=== PATIENT | female | born 1955 | race Hispanic/Latino ===

== ENCOUNTER 2018-01-09 15:14 | Emergency (ER) | payer OTHER, SELFPAY ==
[~2018-01-09 15:14] MED LIST: AMOX-426 PO; LEVO500T2 PO; LISI10TA7 PO; METF850T2 PO
== END 2018-01-09 15:55 | disposition home or self-care (01) ==
LOC: EDH 15:14
DX: H66.011 Acute suppurative otitis media with spontaneous rupture of ear drum, right ear (principal)

== ENCOUNTER 2025-01-13 01:49 | Inpatient (IN) | payer MEDICAID ==
[~2025-01-13] VITALS: Ht 157.5 cm; Wt 39.2 kg
[2025-01-13] VITALS (34 sets, daily range): BP systolic 120–149; BP diastolic 48–64; PULSE 69–92; RESP 12–28; TEMP 97.5–98.8; O2SAT 95–100
[~2025-01-13 01:49] MED LIST changes: +LISI10TA24 PO; -LISI10TA7 PO; +METF-445 PO; -METF850T2 PO
--- NOTE | 2025-01-13 02:13 | NUR ---
PHONE NUMBER FOR FAMILY [phone]
[2025-01-13 02:23] LABS: BASOPHILS # (AUTO) 0.08 K/uL (0.00-0.20); BASOPHILS % (AUTO) 0.5 % (0.0-5.0); EOSINOPHILS # (AUTO) 0.16 K/uL (0.00-0.70); EOSINOPHILS % (AUTO) 0.9 % (0.0-8.0); HEMATOCRIT 31.3 % (36-48); IMMATURE GRANULOCYTE ABSOLUTE 0.09 K/uL (0-1); LYMPHOCYTES # (AUTO) 1.7 K/uL (1.0-4.8); LYMPHOCYTES % (AUTO) 9.9 % (21.0-51.0); MEAN CORPUSCULAR HEMOGLOBIN 30.6 pg (27.0-33.0); MEAN CORPUSCULAR HGB CONC 29.4 g/dL (32.0-36.0); MONOCYTES # (AUTO) 0.5 K/uL (0.1-1.0); NEUTROPHILS # (AUTO) 14.9 K/uL (1.8-7.7); NEUTROPHILS % (AUTO) 85.2 % (40.0-77.0); PLATELET COUNT (AUTO) 335 K/uL (130-400); RED BLOOD CELL COUNT(AUTO) 3.01 MIL/uL (4.00-5.50); RED CELL DISTRIBUTION WIDTH 17.1 % (11.0-15.5); WHITE BLOOD COUNT (AUTO) 17.5 K/uL (4.8-10.8)
--- NOTE | 2025-01-13 02:27 | NUR ---
PATIENT DID NOT BRING HOME MEDICATIONS
[2025-01-13 02:38] LABS: CREATININE 7.6 mg/dL (0.5-1.0); MAGNESIUM 2.4 mg/dL (1.80-2.40); POTASSIUM 5.5 mmol/L (3.5-5.1)
[2025-01-13 02:40] LABS: ABG BASE EXCESS -7.1 mmol/L (-2.0-3.0); ABG HCO3 22.3 mmol/L (21.0-28.0); ABG OXYGEN SATURATION 92.4 % (94.0-98.0); CARBON MONOXIDE 0.5 % (0.5-1.5); HHb 7.5; PO2, ARTERIAL BG 85.5 mmHg (83.0-108.0); VENT MODE, BG BIPAP,12,6 (ROOM AIR)
[2025-01-13 02:49] LABS: B-TYPE NATRIURETIC PEPTIDE 3120 pg/mL (0-100)
[2025-01-13] MEDS: ceFEPime HCL 1 GM VIAL IVPB SCH (02:57)
[2025-01-13] MEDS ORDERED: VANCOMYCIN PROTOCOL PER PHARMACY IV SCH (03:00)
--- NOTE | 2025-01-13 03:04 | ERN ---
General Chief Complaint: Shortness of Breath Stated Complaint: SOB, NEEDS H/D Time Seen by MD: 01:50 Time Seen by Midlevel: 01:50 Source: patient History of Present Illness Initial Comments The patient is a 69-year-old female extremely poor historian being brought in by EMS for evaluation of shortness of breath. No history was able to be obtained via the patient. All history was obtained by EMS. The patient was picked up at home after EMS was called on scene. O2 saturation on scene was 89%. The patient was given oxygen via nasal cannula with little to no relief. On arrival the patient appears to be in [id number] respiratory distress. She was unable to speak in complete sentences. Unable to obtain any history from the p atient. She does admit to being a dialysis patient but is unable to tell us when her last dialysis treatment was or who her parquetry layer this. Allergies: Coded Allergies: No Known Allergies (Verified Allergy, Unknown, 05/22/15) Home Meds Active Scripts Amoxicillin/Potassium Clav (Augmentin 500-125 Tablet) 1 Each Tablet, 1 EACH PO B ID, #28 TAB Prov:ANDREE GRACIA MD 05/26/15 Levofloxacin (Levaquin) 500 Mg Tablet, 500 MG PO DAILY, #14 TAB Prov:ANDREE GRACIA MD 05/26/15 Lisinopril (Lisinopril) 10 Mg Tablet, 10 MG PO DAILY, #30 TAB Prov:ANDREE GRACIA MD 05/26/15 Metformin HCl (Metformin HCl) 850 Mg Tablet, 850 MG PO BID, #60 TAB Prov:ANDREE GRACIA MD 05/26/15 Past Medical History Past Medical History: Diabetes-Type II, Hypertension, Renal Failure Past Surgical History: Unknown ROS Dictation CONSTITUTIONAL: Negative except for HPI HEAD/FACE: Negative except for HPI EENT: Negative except for HPI RESPIRATORY: Negative except for HPI GASTROINTESTINAL/ABDOMINAL: Negative except for HPI GENITOURINARY: Negative except for HPI MUSCULOSKELETAL: Negative except for HPI INTEGUMENTARY: Negative except for HPI NEUROLOGICAL/PSYCH: Negative except for HPI HEMATOLOGIC/LYMPHATIC: Negative except for HPI All Systems Negative, Except as noted above. 13 point review of systems assessed and all negative except for above. Physical Exam Physical Exam Dictation Vital Signs reviewed General Appearance: appears sleepy, moderate respiratory distress Head and Face: non-traumatic. Eyes: PERRL, pink conjunctivas, eyelid no trauma, anterior chamber with arcus senilis. Ears: Pinnas intact and no signs of trauma or erythema ear canals clear and no discharge TM no erythema Nose: No discharge, no bleeding. Oropharynx: Mouth normal, tongue pink, pharynx clear,no erythema, tonsils no exudates, no abscesses noted, mucous membrane moist Neck: Supple, non-tender, no thyromegaly, no masses, no JVD, no bruits Breast:Deferred Chest:No tenderness, no crepitus, no paradoxical movement, no retractions Lungs: Rhonchi to bilateral lung chauhan, tachypneic Heart: Regular rate, regular rhythm, no murmur, no gallops Vascular: Trace pitting edema to bilateral lower extremities , right PermCath Abdomen: Soft, positive bowel sounds, nondistended, no guarding, nontender, no rebound, no masses no hepatomegaly, no splenomegaly, no Hare's sign, no hernias. Rectal: Deferred Genital: Deferred Neurological: Normal speech, motor function intact, sensory function intact Musculoskeletal: Neck nontender, full range of motion, back nontender, full range of motion, Extremities: nontender, full range of motion Skin: Color pink, dry, no turgor, no rash, no lacerations, no abrasions, no contusions. Lymphatic: Deferred Results Laboratory and Microbiology Lab and Micro Result Laboratory Tests Test 01/13/25 02:12 01/13/25 02:38 White Blood Count 17.5 K/uL (4.8-10.8) H Red Blood Count 3.01 MIL/uL (4.00-5.50) L Hemoglobin 9.2 g/dL (12.0-16.0) L Hematocrit 31.3 % (36-48) L Mean Corpuscular Volume 104.0 fL (79-99) H Mean Corpuscular Hemoglobin 30.6 pg (27.0-33.0) Mean Corpuscular Hemoglobin Concent 29.4 g/dL (32.0-36.0) L Red Cell Distribution Width 17.1 % (11.0-15.5) H Platelet Count 335 K/uL (130-400) Mean Platelet Volume 9.6 fL (7.5-10.5) Immature Granulocyte % (Auto) 0.5 % (0-1) Neutrophils (%) (Auto) 85.2 % (40.0-77.0) H Lymphocytes (%) (Auto) 9.9 % (21.0-51.0) L Monocytes (%) (Auto) 3.0 % (3.0-13.0) Eosinophils (%) (Auto) 0.9 % (0.0-8.0) Basophils (%) (Auto) 0.5 % (0.0-5.0) Neutrophils # (Auto) 14.9 K/uL (1.8-7.7) H Lymphocytes # (Auto) 1.7 K/uL (1.0-4.8) Monocytes # (Auto) 0.5 K/uL (0.1-1.0) Eosinophils # (Auto) 0.16 K/uL (0.00-0.70) Basophils # (Auto) 0.08 K/uL (0.00-0.20) Absolute Immature Granulocyte (auto 0.09 K/uL (0-1) Nucleated Red Blood Cells 0.0 % (0.0-0.19) White Cell Morphology Comment See comments Red Blood Cell Morphology See comments Sodium Level 135 mmol/L (136-145) L Potassium Level 5.5 mmol/L (3.5-5.1) H Chloride Level 96 mmol/L (101-111) L Carbon Dioxide Level 28 mmol/L (21-32) Blood Urea Nitrogen 83 mg/dL (7-18) *H Creatinine 7.6 mg/dL (0.5-1.0) H Glomerular Filtration Rate Calc 5 mL/min (>90) Random Glucose 168 mg/dL (70-105) H Total Calcium 8.3 mg/dL (8.5-10.1) L Magnesium Level 2.40 mg/dL (1.80-2.40) Total Creatine Kinase 45 U/L (21-232) # Troponin I High Sensitivity 23 ng/L (4-50) B-Type Natriuretic Peptide 3120 pg/mL (0-100) H Blood Gas Specimen Type Arterial Arterial Blood pH 7.132 (7.350-7.450) Arterial Blood Partial Pressure CO2 68 mmHg (32-45) *H Arterial Blood Partial Pressure O2 85.5 mmHg (83.0-108.0) Arterial Blood HCO3 22.3 mmol/L (21.0-28.0) Arterial Blood Oxygen Saturation 92.4 % (94.0-98.0) L Arterial Blood Base Excess -7.1 mmol/L (-2.0-3.0) L Hemoglobin (Blood Gas) 9.3 g/dL (12.0-16.0) L Sodium (Blood Gas) 134 MMOL/L (136-145) L Bedside Potassium (Blood Gas) 5.4 MMOL/L (3.4-4.5) H Bedside Chloride (Blood Gas) 98 MMOL/L (98-107) Bedside Glucose (Blood Gas) 167 MG/DL (65-95) H Bedside Ionized Calcium (Blood Gas) 1.07 MMOL/L (1.15-1.33) L Bedside Lactic Acid (Blood Gas) 1.29 MMOL/L (0.36-0.75) H Blood Gas Temperature 37.0 CELSIUS (35.5-37.0) Blood Gas Respiration Rate 18.0 min. Blood Gas Vent Mode BIPAP,12,6 (ROOM AIR) FiO2 50.0 % Blood Gas Specimen Comment LB,RN,MANY Labs Reviewed?: Yes MDM MDM: Differential diagnosis: Fluid overload, respiratory distress, pulmonary edema, pneumonia Rationale: Tests considered and ordered secondary to shared decision making incl ude: Previous outside records reviewed: Old ER visits. Risk of complication and/or morbidity or mortality of patient management: None Medications-Per medication reconciliation Need for hospitalization: Patient does meet criteria for hospitalization. Need for emergency major/minor surgery: No There are no social concerns with this patient. Prescription drug management Prescriptions will include symptomatic care Patient's prior external medical records from other ER visits were reviewed by me as indicated. Prior testing and results from previous visits were reviewed. Prior tests were taken into account with medical decision making and resource utilization, independent historian/historians were used to obtain complete medical history. I independently interpreted the test that were performed, results were reviewed by me and considered findings on radiology if ordered. Medical management and examination interpretation discussions were had by me with other qualified healthcare professionals as indicated for the patient's care. ED Course Orders Procedure Category Date Status Time 12 Lead Ekg Tracing- EKG 01/13/25 Logged Technical 01:58 B-Type Natriuretic LAB 01/13/25 Complete Peptide 01:58 Basic Metabolic Panel LAB 01/13/25 Complete 01:58 Cbc With Differential LAB 01/13/25 Complete 01:58 Urinalysis Profile LAB 01/13/25 Logged 01:58 Troponin I High LAB 01/13/25 Complete Sensitivity 01:58 Chest 1vw RAD 01/13/25 Taken 01:58 Magnesium LAB 01/13/25 Complete 01:58 Creatine Kinase, Total LAB 01/13/25 Complete 01:58 Arterial Blood Gas + RT 01/13/25 Transmitted 01:58 Vancomycin Protocol PHA 01/13/25 Logged (Vancomycin Protocol 03:00 Cefepime Hcl 1 Gm PHA 01/13/25 In Process Vial (Maxipime 1 Gm Vi 03:00 Bipap Settings RT 01/13/25 Transmitted 02:31 Arterial Blood Gas LAB 01/13/25 Complete Arterial + 02:38 Current Medications Medications (Trade) Dose Ordered Sig/Carlene Route PRN Reason Start Time Stop Time Status Last Admin Dose Admin Cefepime HCl (MAXipime 1 GM vial) 1 gm Q24H IVPB 01/13/25 03:00 01/23/25 02:59 01/13/25 02:57 Vancomycin HCl (Vancomycin Protocol) 1 each AD IV 01/13/25 03:00 01/27/25 02:59 UNV Vital Signs Date Time Temp Pulse Resp B/P (MAP) Pulse Ox O2 Delivery O2 Flow Rate FiO2 01/13/25 02:52 72 28 N/Cannula Low lpm 3.0 32 01/13/25 02:49 73 27 50 01/13/25 02:26 74 18 50 01/13/25 02:08 84 32 125/49 84 Nasal Cannula* 3 32 01/13/25 02:05 96.6 80 26 148/61 85 Nasal Cannula 3.0 3:00 a.m. case discussed with parquetry layer Dr. Ward who agrees to consult. Recommends admission and will dialyze in the morning. Dr. Ward is aware of this patient. This patient gets dialysis as needed but normally goes to [facility]. DX & DISP Disposition: Inpatient Decision to Admit Date: Jan 13, 2025 Decision to Admit Time: 03:06 Departure Impression: Primary Impression: Pulmonary edema Additional Impressions: End-stage renal disease on hemodialysis, Respiratory distress, Pneumonia, Leukocytosis, Hyperkalemia Condition: Stable Referrals: SELF,REFERRAL (PCP) I have reviewed the case, and I agree with, Diagnosis and Plan I performed the substantive portion of the visit. I have reviewed and personally made and approve the management plan that is documented in the note by myself or the CONNOR. I acknowledge for responsibility for the patient's management plan. OMERO HUMPHREYS Jan 13, 2025 03:04
[2025-01-13] MEDS: VANCOMYCIN 1G/250ML KIT 250 ML IV ONE (03:18)
[2025-01-13] MEDS: DEXTROSE 50%-WATER 50 ML DISP.SYRIN IV ONE (03:18)
[2025-01-13] MEDS: INSULIN humuLIN R 100 UNIT/ML 3ML IV ONE (03:21)
--- NOTE | 2025-01-13 03:22 | HP ---
History of Present Illness Reason for Visit: sob History of Present Illness Ms. Whittington is a 69-year-old female that was seen and examined today on 01/13/2025. Patient is unable to provide any past medical history at this time due to shortness and breath. Patient is on a BiPAP. There was no family member at bedside. The following was obtained from a combination of emergency room physician report and previous records available to me from a remote admission in 2015 According to emergency room physician: The patient is a 69-year-old female extremely poor historian being brought in by EMS for evaluation of shortness of breath. No history was able to be obtained via the patient. All history was obtained by EMS. The patient was picked up at home after EMS was called on scene. O2 saturation on scene was 89%. The patient was given oxygen via nasal cannula with little to no relief. On arrival the patient appears to be in [id number] respiratory distress. She was unable to speak in complete sentences. Unable to obtain any history from the patient. She does admit to being a dialysis patient but is unable to tell us when her last dialysis treatment was or who her bridge opener this. Today in the emergency department WBCs 17.5, left shift neutrophils 85.2%, hemoglobin 9.2, hematocrit 31.3, potassium 5.5, BUN 83, creatinine 7.6, BNP 3120, calcium 7.6 Past Medical History Patient History: Family history: Hypertension SON No Family History of: Cancer Chronic obstructive lung disease Family history: Alzheimer's disease Family history: Asthma Family history: Cardiovascular disease Family history: Diabetes mellitus Parkinson's disease Stroke Sudden ADDITIONAL PAST MEDICAL HISTORY: [ESRD on HD, Diabetes mellitius type2] SOCIAL HISTORY: [Unable to obtain] SURGICAL HISTORY: [Left great toe amputation] Review of Systems General: No Fever, No Chills, No Night Sweats, No Fatigue, No Malaise, No Appetite, No Other HEENT: No Head Aches, No Visual Changes, No Eye Pain, No Ear Pain, No Dysphasia, No Sinus Congestion, No Post Nasal Drip, No Sore Throat, No Other Pulmonary: Dyspnea; No Cough, No Pleuritic Chest Pain, No Other Cardiovascular: No: Chest Pain, Palpitations, Orthopnea, Paroxysmal Noc. Dyspnea, Edema, Lt Headedness, Other Gastrointestinal: No: Nausea, Vomiting, Abdominal Pain, Diarrhea, Constipation, Melena, Hematochezia, Other Genitourinary: No Dysuria, No Frequency, No Incontinence, No Hematuria, No Retention, No Other Musculoskeletal: No: other, neck pain, shoulder pain, arm pain, back pain, hand pain, leg pain, foot pain Skin: No Urticaria, No Rash, No Other Neurological: Weakness; No: Numbness, Incoordination, Change in speech, Confusion, Seizures, Other Allergies: Coded Allergies: No Known Allergies (Verified Allergy, Unknown, 05/22/15) Scheduled Amoxicillin/Potassium Clav (Augmentin 500-125 Tablet), 1 EACH PO BID Levofloxacin (Levaquin), 500 MG PO DAILY Lisinopril (Lisinopril), 10 MG PO DAILY Metformin HCl (Metformin HCl), 850 MG PO BID Exam Vital Signs Vital Signs Date Time Temp Pulse Resp B/P (MAP) Pulse Ox O2 Delivery O2 Flow Rate FiO2 01/13/25 02:52 72 28 N/Cannula Low lpm 3.0 32 01/13/25 02:08 125/49 84 01/13/25 02:05 96.6 General Appearance: Alert (x1), moderate distress HEENT: Atraumatic, EOMI, Mucous membr. moist/pink Respiratory: Other (Bilateral rales present) Cardiovascular: Regular rate, Regular rhythm, Normal S1, Normal S2 Abdominal: Normal bowel sounds, No tenderness Extremities: No edema, Other (Right femoral dialysis access) Skin: Other (Heel protectors to bilateral feet) Neuro: Other (Unable to assess) Psych/Mental Status: Other (Unable to assess) Assessment/Plan ASSESSMENT: [ Acute hypoxemic respiratory failure, POA, requiring noninvasive positive airway pressure, POA Pulmonary edema, POA ESRD on HD, POA Hyperkalemia, POA Hypocalcemia, POA Leukocytosis, POA Macrocytic normochromic anemia, POA Uncontrolled Diabetes mellitius type2, POA Functional quadriplegia Suspected pneumonia PLAN: [ Admit patient to ICU floor as inpatient status. Place patient on telemetry monitoring. Consult pulmonology Service, appreciate recommendations DuoNebs every 6 hours Solu-Medrol 125 mg IV times 1 Solu-Medrol 40 mg IV every 8 hours. BiPAP per emergency room settings, 08/21, 50%, rate 24, adjustments per pulmonology team Patient is being followed by Nephrology Service, Dr. Ward who was consulted from the emergency department. Monitor intake and output every shift. Weight patient daily. 1500 mL daily fluid restriction. Plan is for hemodialysis in the morning. Manage electrolytes per Nephrology recommendations Check blood culture, follow up with the results Check lactic acid, follow up with the results Check procalcitonin, follow up with the results Check respiratory culture, follow up with the results Check iron panel, follow up with the results Check serum ferritin, follow up with the results Check LDH, reticulocyte count, peripheral smear, follow up with the results Monitor labs Transfuse packed red blood cells for hemoglobin less than 7 mg/dL Check folic acid and vitamin B12, follow up with the results Consult Physical therapy for evaluation and treatment Consult speech therapy for bedside swallow eval Consider advancing diet if patient is no longer short of breath and she passes bedside swallow eval Dietitian consult for nutritional support recommendations Turn and reposition patient every 2 hours Check glucometer a.c. and HS Check hemoglobin A1c in a.m. Humulin R as sliding scale 1/2 dose GI prophylaxis, Protonix DVT prophylaxis, heparin Critical Care Time: I spent ___ 51 __ minutes of critical care time with the patient. I reviewed lab work, change the patient's medication, and coordinated protocol in the event of tachycardia or desaturation. The patient status remains unchanged. ADVANCED CARE PLANNING 1. Which of the following were discussed? Hospice Care - Yes Therapeutic options - Yes Advance Directives - Yes Other discussions - 2. Discussed with who? patient 3. Voluntary nature of this service was explained to the patient? Yes 4. Amount of time spent - _16 minutes 5. Reviewed by Physician? (if this service was performed by NPP) Yes This document was generated in part using voice recognition software, occasional wrong word or sound alike substitutions may have occurred due to the inherent limitations of voice recognition software. Read the chart carefully and recognize using context, where the substitutions have occurred. Although every effort was made to edit the content, fish cake maker and typing errors may occur ATTESTATION BY PHYSICIAN I have seen and examined the patient. I reviewed the documentation, medical decision making, and treatment plan as noted by the mid-level provider above. I agree with the findings and plan of care. TYREL HICKS RIB BUILDER Jan 13, 2025 03:22
[2025-01-13] MEDS ORDERED: ondanSETRON 4MG INJ IV PRN (03:30)
[2025-01-13] MEDS ORDERED: hydrALAZine 20MG/ML VIAL IV PRN (03:30)
[2025-01-13] MEDS ORDERED: morPHINE 2 MG SYG IVP PRN (03:30)
[2025-01-13] MEDS: ALBUTEROL 0.083% 2.5 MG/3 ML INH IH SCH (03:38)
[2025-01-13] MEDS: Solu-medROL 125MG VIAL IVP ONE (04:08)
[2025-01-13] MEDS: cefTRIAXone 1G VIAL IV SCH (04:08)
[2025-01-13] MEDS: DOXYCYCLINE 100MG+NS 250ML 250 ML IV SCH (04:11)
--- NOTE | 2025-01-13 04:34 | NUR ---
Leti ESCALANTE NP MADE AWARE OF PULMONOLOGY/CRITICAL CARE CONSULT
--- NOTE | 2025-01-13 06:06 | NUR ---
DR GARIBAY MADE AWARE OF NEPHROLOGY CONSULT
[2025-01-13 06:09] LABS: ABG PH 7.132 (7.350-7.450)
[2025-01-13 06:10] LABS: ABG PCO2 68 mmHg (32-45)
[2025-01-13] MEDS: SODIUM CHLORIDE 3% FOR INHALATION 4 ML/AMP VIAL.NEB IH ONE ×2 (07:16→11:52)
[2025-01-13] MEDS: IpraTROPium/alBUTERol SULFATE 3 ML SOLUTION IH SCH (07:16)
[2025-01-13] MEDS: INSULIN humuLIN R 100 UNIT/ML 3ML SQ SCH (07:30)
[2025-01-13 08:02] LABS: RETICULOCYTE % (AUTO) 3.6 % (0.42-2.23)
--- NOTE | 2025-01-13 08:06 | NUR ---
DR GARIBAY AT BEDSIDE.PT DOES NOT QUALIFY FOR OUTPATIENT DIALYSIS. PER DR GARIBAY,FAMILY DOES NOT WANT HER IN HOSPICE,DOES NOT WANT HER DNR.
[2025-01-13 08:11] LABS: % IRON SATURATION 9.6 % (22-44)
--- NOTE | 2025-01-13 08:17 | CONS ---
[facility] CONSULTATION NOTE Date Patient Seen: Jan 13, 2025 Time of Visit: 08:17 Supervising Physician: Santiago Hdez MD Reason for Consultation: Acute resp failure Primary Care Physician: Self Referral Outpatient Specialists: [ ] Inpatient Consults: Dr Sylvia ALMONTE PROBLEM LIST: Acute hypercapnic respiratory failure requiring BiPAP POA Suspected healthcare associated pneumonia, POA Acute on chronic heart failure, POA Acute metabolic encephalopathy POA Bilateral pleural effusions R>L POA ESRD on HD, POA requiring emergent dialysis Hyperglycemia in the presence of type 2 diabetes mellitus Hyperkalemia, POA Hypocalcemia, POA Leukocytosis, POA Macrocytic normochromic anemia, POA Uncontrolled Diabetes mellitius type2, POA Functional quadriplegia Suspected pneumonia HPI: This is a 69-year-old chronically ill female with a past medical history of ESRD requiring hemodialysis in [facility], type 2 diabetes mellitus and essential hypertension who presented to the ED for evaluation of shortness breath. On arrival to the ED patient was hypothermic with a temperature 96.6 heart rate in the 80s respiratory rate 26 blood pressure of 148/61 saturating 85% at 3 L via nasal cannula. On laboratory work of white count was 17.5 H&H is 9.2/31.3 with a platelet count of 335 K neutrophils of 85.2. Ventricular count 3.6 and immature reticular fraction elevated at 14.20. Chemistries [id number] potassium of 5.5 chloride of 96 carbon [id number] BUN of83 creatinine of 7.6 and GFR of five consistent with a ESRD and a glucose of 168 mg/dL. Initial troponin 23. BNP 3120. ABG done in the ED which showed pH of 7.13, pCO2 of 68, PO2 of 85.5 and bicarb 22.3. Consistent with acute respiratory acidosis. She was placed on BiPAP. And admitted to the ICU by catalyst team and we are consulted for critical care management in acute respiratory failure. Patient is a poor historian most history obtained from medical records and primary nurse. On assessment patient was lethargic. Answered to voice and oriented to place and person. She was on continues BiPAP. On repeat ABG pH of 7.32, rMH600 PO2 119.6 and bicarb of 26.4. Seems to have improved. She received hemodialysis in the ED and had 1.9 L out. Chest x-ray shows bilateral pulmonary infiltrates and pleural effusion with right worsened left. She is hemodynamically stable heart rate in the 80s and afebrile. Stable to downgrade to PCCU. PAST MEDICAL HX: see above PAST SURGICAL HX: noncontributory SOCIAL HISTORY: No tobacco, ETOH, or illicit drug use Coded Allergies: No Known Allergies (Verified Allergy, Unknown, 05/22/15) REVIEW OF SYSTEMS: Unable to perform due to encephalopathy. PHYSICAL EXAM: GENERAL: Lethargic awake to voice answers to person and place. Chronically ill. HEENT: EOMI, Sclera non icteric, moist mucosa NECK: Supple, no JVD, trachea midline LUNGS: Diminished breath sounds bilaterally. No wheezes HEART: Regular rate and rhythm. Normal S1 and S2, without murmurs ABD: Abdomen soft, nontender. Bowel sounds present EXT: No clubbing cyanosis or edema NEURO: No focal deficits, GCS of 14, follows commands. Vital Signs (last 8hr) Date Time Temp Pulse Resp B/P (MAP) Pulse Ox O2 Delivery O2 Flow Rate FiO2 01/13/25 07:18 69 26 01/13/25 07:17 69 26 50 01/13/25 06:24 65 16 113/81 99 Bi-PAP+ 50 01/13/25 05:25 65 16 116/47 98 Bi-PAP+ 50 01/13/25 03:59 98.1 71 16 113/45 99 Bi-PAP+ 50 01/13/25 03:38 73 24 01/13/25 02:52 72 28 N/Cannula Low lpm 3.0 32 01/13/25 02:49 73 27 50 01/13/25 02:26 74 18 50 01/13/25 02:08 84 32 125/49 84 Nasal Cannula* 3 32 01/13/25 02:05 96.6 80 26 148/61 85 Nasal Cannula 3.0 LABS: Hematology Labs: Test 01/13/25 07:33 01/13/25 02:12 Range/Units Reticulocyte Count (auto) 3.94690 H 0.42-2.23 % Immature Reticulocyte Fraction 14.20 H 0.18-0.48 % White Blood Count 17.5 H 4.8-10.8 K/uL Red Blood Count 3.01 L 4.00-5.50 MIL/uL Hemoglobin 9.2 L 12.0-16.0 g/dL Hematocrit 31.3 L 36-48 % Mean Corpuscular Volume 104.0 H 79-99 fL Mean Corpuscular Hemoglobin 30.6 27.0-33.0 pg Mean Corpuscular Hemoglobin Concent 29.4 L 32.0-36.0 g/dL Red Cell Distribution Width 17.1 H 11.0-15.5 % Platelet Count 335 130-400 K/uL Mean Platelet Volume 9.6 7.5-10.5 fL Immature Granulocyte % (Auto) 0.5 0-1 % Neutrophils (%) (Auto) 85.2 H 40.0-77.0 % Lymphocytes (%) (Auto) 9.9 L 21.0-51.0 % Monocytes (%) (Auto) 3.0 3.0-13.0 % Eosinophils (%) (Auto) 0.9 0.0-8.0 % Basophils (%) (Auto) 0.5 0.0-5.0 % Neutrophils # (Auto) 14.9 H 1.8-7.7 K/uL Lymphocytes # (Auto) 1.7 1.0-4.8 K/uL Monocytes # (Auto) 0.5 0.1-1.0 K/uL Eosinophils # (Auto) 0.16 0.00-0.70 K/uL Basophils # (Auto) 0.08 0.00-0.20 K/uL Absolute Immature Granulocyte (auto 0.09 0-1 K/uL Nucleated Red Blood Cells 0.0 0.0-0.19 % White Cell Morphology Comment See comments Red Blood Cell Morphology See comments Chemistry Labs: Test 01/13/25 07:33 01/13/25 07:27 01/13/25 02:12 Range/Units Lactic Acid Level 1.0 0.8-2.5 mmol/L Iron Level 22 L 50-170 mcg/dL Total Iron Binding Capacity 229 L 250-450 mcg/dL Percent Iron Saturation 9.6 L 22-44 % Whole Blood Glucose 164 H 70-110 MG/DL Sodium Level 135 L 136-145 mmol/L Potassium Level 5.5 H 3.5-5.1 mmol/L Chloride Level 96 L 101-111 mmol/L Carbon Dioxide Level 28 21-32 mmol/L Blood Urea Nitrogen 83 *H 7-18 mg/dL Creatinine 7.6 H 0.5-1.0 mg/dL Glomerular Filtration Rate Calc 5 >90 mL/min Random Glucose 168 H 70-105 mg/dL Hemoglobin A1c 5.0 4.0-6.0 % Estimated Average Glucose (eAG) 97 70-126 mg/dL Total Calcium 8.3 L 8.5-10.1 mg/dL Magnesium Level 2.40 1.80-2.40 mg/dL Total Creatine Kinase 45 # 21-232 U/L Troponin I High Sensitivity 23 4-50 ng/L B-Type Natriuretic Peptide 3120 H 0-100 pg/mL DIAGNOSTICS / RADIOLOGY RESULTS: [ ] IMAGING REPORT Signed PATIENT: ALLISON GONZALES MR#: [id number] : 1955 SEX: F AGE: 69 LOCATION: HIP ORDER 8 STATUS: ADM IN REPORT#: [id number] SERVICE 7 REASON: sob ORDERING PHYSICIAN: OMERO HUMPHREYS PROCEDURE: CXR1VW - CHEST 1VW CHEST 1VW HISTORY: Shortness of breath COMPARISON: 05/22/2015 FINDINGS: A frontal projection of the chest was obtained. Bilateral pulmonary infiltrates and pleural effusions are seen with right more than left worse from previous study. There are bronchiectasis. The heart is borderline enlarged. Degenerative changes are seen. No evidence of aortic calcification is seen. IMPRESSION: 1. Bilateral pulmonary infiltrates and pleural effusions with right worse than left. DICTATED BY: PJ MAXWELL MD DATE: 01/13/251108 ELECTRONICALLY SIGNED BY: PJ MAXWELL MD DATE: 01/13/25 1113 PLAN Monitor respiratory status closely Maintain O2 sats above 92% Continuous telemetry monitoring CBC, cardiac troponin, electrolytes, BUN and creatinine labs in a.m. Chest x-ray in the morning Strict I&O Hydralazine p.r.n. for hypertension Hemodialysis per [place] Fluid restriction 1.5-2 L Renal diet Daily weight Avoid blood transfusions unless absolutely necessary with a hemoglobin less than seven BiPAP at night and prn -Arrange outpatient pulmonology referral for sleep study, PFT and follow-up management upon discharge GI and DVT prophylaxis with Protonix and heparin. NEURO: Minimize central acting medications as possible. Fall Precautions. Well lighted room through the day and minimize interruptions through the night to prevent acute delirium. PULMONARY: Supplemental 02 as needed Titrate Fio2 to keep Spo2 > or = 90% DuoNebs and CPT as needed IS hourly while awake for pulmonary hygiene Out of bed to chair as tolerated BiPAP 12/6 50% CARDIOVASCULAR: Follow hemodynamics. Titrate vasopressor to keep MAP >65 or systolic blood pressure >95mmHg Drips: None LINES: PIV GI & NUTRITION: Continue nutritional support Aspirations precautions Prokinetic agents and laxatives as needed Renal diet KIDNEYS & ELECTROLYTES: Strict monitoring of intake and output Daily weights Avoid nephrotoxic agents Monitor electrolytes and replace as needed Goal urine output of 30mL/hr or 0.5mL/kg/hr Urine output: [ ] Fluid Balance: [ ] ENDOCRINE: Maintain blood glucose between 100-180 at all times. Insulin sliding scale for blood glucose management INFECTIOUS DISEASE: Trend temperature. Goff-culture if febrile. Micro: [ ] Blood cultures Respiratory cultures Influenza- COVID-19- Antibiotics: Vancomycin Zosyn and Doxycycline HEMATOLOGY & COAGULATION: Monitor H&H. Keep Hgb > 7 Transfuse 1 unit of PRBC for Hgb < 7 Transfuse 1 pack of platelets of platelets < 20, 000 Watch for any signs and symptoms of bleeding SKIN: Pressure ulcer prevention per facility protocol Rehab: PT/OT Prophylaxis: GI: Protonix DVT: Heparin Code Status: Full Resuscitation Disposition: [ ] Other: Total patient care time exceeds 35 minutes excluding all procedures. Case was discussed and seen with my supervising physician. The above plan was formulated and agreed upon. ATTESTATION BY PHYSICIAN I attest that I reviewed and discussed the case with the Physician Document Design Specialist as well as agree with the Physician Document Design Specialist's findings, plans of care, and documentation above. Santiago Interiano MD, NELLY [facility] Jan 13, 2025 08:17
[2025-01-13] MEDS: furoSEMIDE 20MG VIAL IV ONE (08:30)
--- NOTE | 2025-01-13 08:30 | NUR ---
DIALYSIS AT BEDSIDE STARTED.
--- NOTE | 2025-01-13 08:30 | NUR ---
CANNOT GIVE 08:30 MEDICATIONS DUE TO DIALYSIS.
[2025-01-13] MEDS: PANTOPrazole 40 MG TAB DR PO SCH (09:00)
[2025-01-13] MEDS: 0.9%NACL 1000ML 1,000 ML IV SCH (09:30)
--- NOTE | 2025-01-13 10:00 | NUR ---
Order noted for PT eval. Patient on BiPAP and is to receive dialysis. PT team to follow.
--- NOTE | 2025-01-13 10:13 | NUR ---
CASE MANAGEMENT I DID SPEAK W/RAF FROM CASE MANAGEMENT ABOUT WHAT DR GARIBAY MENTIONED ABOUT THE PT. SHE WILL SPEAK TO THE PT/FAMILY
[2025-01-13] MEDS: HEParin 5,000 UNIT VIAL IRRIG SCH (10:57)
--- NOTE | 2025-01-13 11:13 | HMCIMG ---
CHEST 1VW HISTORY: Shortness of breath COMPARISON: 05/22/2015 FINDINGS: A frontal projection of the chest was obtained. Bilateral pulmonary infiltrates and pleural effusions are seen with right more than left worse from previous study. There are bronchiectasis. The heart is borderline enlarged. Degenerative changes are seen. No evidence of aortic calcification is seen. IMPRESSION: 1. Bilateral pulmonary infiltrates and pleural effusions with right worse than left.
[2025-01-13 12:02] LABS: ABG HCO3 26.4 mmol/L (21.0-28.0); ABG OXYGEN SATURATION 97.7 % (94.0-98.0); ABG PCO2 52 mmHg (32-45); ABG PH 7.326 (7.350-7.450); CARBON MONOXIDE 0.3 % (0.5-1.5); DEVICE COMMENT RB.BETH-RN; HHb 2.3; PO2, ARTERIAL BG 119.6 mmHg (83.0-108.0); VENT MODE, BG BIPAP 12-6 (ROOM AIR)
--- NOTE | 2025-01-13 12:15 | NUR ---
DIALYSIS COMPLETED. 1.9 L FLUID REMOVED.
--- NOTE | 2025-01-13 12:58 | NUR ---
DCP: HOME SW spoke pt's dgt Bindu Whittington [phone] to gather information. As per dgt pt is currently living with her in her home. Prior to this visit she was at [facility] [place] month and was discharged last , she could not tell me what she was being treated for at . Pt does do dialysis , , monday and goes to ER for treatments. Prior to stay at hospital pt would use a walker however she has been "only in beds" since she got out. Pt does not report O2 at home. Dgt states that the family has been asked if pt would do hospice and dgt states that pt says she does not want do hospice and pt has been the one to make all her medical decisions. At [place] dgt states that pt wants to go home. Addendum: 01/13/25 at 1305 by ZEN PATEL SS Amended: Links added.
[2025-01-13] MEDS: ZOSYN 3.375GM +NS 50ML IV SCH (13:25)
[2025-01-13] MEDS: Solu-medROL 40MG VIAL IVP SCH (13:25)
[2025-01-13] MEDS: HEParin 5,000 UNIT VIAL SQ SCH (13:25)
--- NOTE | 2025-01-13 13:33 | NUR ---
SPEECH NOTE: CRATER AND PACKER coordinated with nurse Logan Pt currently, on BiPAP. CRATER AND PACKER will follow up to evaluate swallow function at bedside when patient is tolerating regular nasal cannula or room air without any s/s of desaturations. All questions answered. Addendum: 01/13/[address] BRAVO BANUELOS Amended: Links added.
--- NOTE | 2025-01-13 13:46 | NUR ---
SPEECH THERAPY COMMUNICATION PT TO EVALUTAED ONCE SHE IS OFF BIPAP. CONSIDER ALTERNATE WAY TO PROVIDE NUTRITION.
[2025-01-13 15:14] LABS: CREATINE KINASE, TOTAL 37 U/L (21-232)
[2025-01-13 16:26] LABS: COVID19 (SARS ANTIGEN RAPID) PRESUMPTIVE NEGATIVE (NEGATIVE); INFLUENZA TYPE A Negative For Type A (NEGATIVE); INFLUENZA TYPE B Negative For Type B (NEGATIVE)
[2025-01-13] MEDS ORDERED: ATOR40TA71 PO (17:22)
[2025-01-13] MEDS ORDERED: METO50 PO (17:22)
[2025-01-13] MEDS ORDERED: AMLO-257 PO (17:22)
[2025-01-13] MEDS ORDERED: HYDR50TA36 PO (17:22)
[2025-01-13] MEDS ORDERED: SEVE800T27 PO ×2 (17:22)
[2025-01-13] MEDS ORDERED: MIDO10TA3 PO (17:22)
[2025-01-13] MEDS ORDERED: ASPI81TA39 PO (17:22)
[2025-01-13] MEDS ORDERED: FERR325T29 PO (17:22)
[2025-01-13] MEDS ORDERED: BUDE0.5A3 NEB (17:22)
[2025-01-13] MEDS ORDERED: CALC0.253 PO (17:22)
[2025-01-13] MEDS ORDERED: ARFO15VI20 IH (17:22)
[2025-01-13] MEDS: EPOETIN ALFA-EPBX (NON-ESRD) 10,000 UNIT/ML VIAL SQ SCH (17:31)
--- NOTE | 2025-01-13 20:51 | CONS ---
REFERRING PHYSICIAN: Marcus Bustamante MD REASON FOR CONSULTATION: Renal failure and volume overload. HISTORY OF PRESENT ILLNESS: A 69-year-old female with a history of diabetes mellitus and hypertension. The patient with a history of end-stage renal disease. The patient does not qualify for outpatient dialysis secondary to her illegal residency status. The patient has had multiple admissions for the past 2 years at outside hospital in regard to emergent dialysis. The patient was just recently discharged from outside hospital. She presents to the hospital with increasing shortness of breath and orthopnea. The patient was found to have significant hypoxia and she is being seen for urgent dialysis. PAST MEDICAL HISTORY: Diabetes mellitus, hypertension, ESRD. PAST SURGICAL HISTORY: Failed AV access, PermCath. SOCIAL HISTORY: She lives with her family. There is no tobacco use. FAMILY HISTORY: There is no renal disease in the family. ALLERGIES: There are no allergies. MEDICATIONS: Noted. REVIEW OF SYSTEMS: She is unable to give any review of systems. She is on BiPAP. PHYSICAL EXAMINATION: VITAL SIGNS: Blood pressure is 125/52, pulse in the 70s. She is afebrile. GENERAL: She is a chronically ill female, elderly, lying in bed on the medical floor. HEENT: Head is atraumatic. Pupils are equal, roving to light. Oropharynx without exudate. Near is clear. NECK: There is no JVP. There is no thyromegaly. No mass. CARDIOVASCULAR: Regular. There is no S3 or S4 gallop. LUNGS: Coarse with equal thoracic movement. ABDOMEN: Soft, nondistended, nontender. EXTREMITIES: Reveal no clubbing, no cyanosis. NEUROLOGICAL: She is awake. She is nonfocal. SKIN: Reveals no rash or nodules. BACK: There is no CVA tenderness. No back deformities. LABORATORY DATA: Sodium 135, potassium 5.5, BUN 83, creatinine 7.6. Hemoglobin 9.2, hematocrit 31. Iron levels are noted. IMPRESSION: * End-stage renal disease with dialysis. * Volume overload. * Diabetes mellitus. * Hypertension. * Anemia. PLAN: The patient will receive urgent dialysis today this consultation. She does have a leukocytosis. Blood cultures are pending. The patient was given a one-time dose of vancomycin while we await culture results. The patient's chest x-ray consistent with significant volume overload. We will continue with maximum ultrafiltration as blood pressure allows. The patient with significant anemia. She will be started on Epogen as well as IV iron. The patient is a Buddhist, refusing any blood transfusions. We will continue to follow the patient closely. The patient's overall prognosis is quite poor. I have discussed with the patient's family on multiple occasions in regards to hospice, which they continue to refuse. We will follow closely. All labs can be repeated in the morning. TID: [id number] RECEIPT: [id number]
[2025-01-13 22:48] LABS: HEPATITIS B SURFACE ANTIBODY Negative (Reactive); HEPATITIS B SURFACE ANTIGEN Non-Reactive (Nonreactive)
[2025-01-13 22:49] LABS: HEPATITIS B CORE AB TOTAL Non-Reactive (Nonreactive); HEPATITIS C ANTIBODY Non-Reactive (Nonreactive)
[2025-01-13] MEDS: IRON sUCROse COMPLEX 300 MG in 0.9% NACL 250ML 250 ML IV ONE (22:56)
[2025-01-13] MEDS: atorVAStatin 40 MG TABLET PO SCH (22:57)
[2025-01-14] VITALS (23 sets, daily range): BP systolic 113–139; BP diastolic 43–58; PULSE 66–104; RESP 14–26; TEMP 97.4–99.7; O2SAT 88–99
[2025-01-14] MEDS: acetaMINOPHEN 325 MG TAB PO PRN (00:07)
[2025-01-14 04:35] LABS: CREATININE 4.4 mg/dL (0.5-1.0); PHOSPHORUS 7.2 mg/dL (2.5-4.9); POTASSIUM 4.8 mmol/L (3.5-5.1)
[2025-01-14 07:05] LABS: EOSINOPHILS # (AUTO) 0.01 K/uL (0.00-0.70); EOSINOPHILS % (AUTO) 0.2 % (0.0-8.0); IMMATURE GRANULOCYTE ABSOLUTE 0.04 K/uL (0-1); LYMPHOCYTES # (AUTO) 0.3 K/uL (1.0-4.8); LYMPHOCYTES % (AUTO) 5.8 % (21.0-51.0); MEAN CORPUSCULAR HEMOGLOBIN 30.6 pg (27.0-33.0); MONOCYTES # (AUTO) 0.1 K/uL (0.1-1.0); MONOCYTES % (AUTO) 1.2 % (3.0-13.0); NEUTROPHILS # (AUTO) 4.6 K/uL (1.8-7.7); PLATELET COUNT (AUTO) 201 K/uL (130-400); RED BLOOD CELL COUNT(AUTO) 2.45 MIL/uL (4.00-5.50); RED CELL DISTRIBUTION WIDTH 16.9 % (11.0-15.5)
--- NOTE | 2025-01-14 07:11 | NUR ---
Moises johnson rn of recollect H&H results reported by lab.
[2025-01-14 07:47] LABS: B-TYPE NATRIURETIC PEPTIDE 1980 pg/mL (0-100)
--- NOTE | 2025-01-14 08:32 | EKG ---
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
--- NOTE | 2025-01-14 09:12 | HMCIMG ---
CHEST 1VW HISTORY: Hypoxia COMPARISON: 01/13/2025 FINDINGS: A frontal projection of the chest was obtained. Right lung pulmonary infiltrates and right pleural effusions are seen. The heart is borderline enlarged. Degenerative changes are seen. No evidence of aortic calcification is seen. IMPRESSION: 1. Right lung infiltrates and right pleural effusion.
[2025-01-14] MEDS: ASPIRIN 81MG CHEW TAB PO SCH (09:34)
--- NOTE | 2025-01-14 10:08 | PN ---
FOLLOWUP PROGRESS NOTE SUBJECTIVE: A 69-year-old female with a history of end-stage renal disease. The patient does not qualify for outpatient dialysis secondary to ____. The patient receives emergent dialysis while in the hospital. The patient did receive dialysis yesterday with 1.9 liters of ultrafiltration. The patient's pulmonary symptoms are much improved and the patient is being seen as a followup visit for all the above. REVIEW OF SYSTEMS: GENERAL: She is feeling somewhat improved. HEENT: No change in vision. No change in hearing. CARDIOVASCULAR: No current chest pain or palpitation. PULMONARY: Shortness of breath is improved. GASTROINTESTINAL: She is tolerating a diet. PHYSICAL EXAMINATION: VITAL SIGNS: Blood pressure 129/44, pulse 80s, afebrile. GENERAL: Chronically ill female, lying in bed on the medical floor. HEENT: Head is atraumatic. Pupils are equal, roving to light. Oropharynx is without exudate. Nares clear. NECK: There is no JVP. There is no thyromegaly, no mass. CARDIOVASCULAR: Regular. There is no S3 or S4 gallop. LUNGS: Coarse with equal thoracic movement. ABDOMEN: Soft, nondistended, and nontender. EXTREMITIES: No clubbing, no cyanosis. NEUROLOGICAL: She is awake. She is alert. She is at her baseline. LABORATORY DATA: Hemoglobin 7.5, hematocrit 25. Sodium 132, creatinine is 4.4. IMPRESSION: * End-stage renal disease, on dialysis. * Hypertension. * Anemia. * Electrolyte abnormalities. PLAN: The patient will be given a dose of Venofer for the anemia. She remains on Procrit. The patient is a Pentecostalism, refuses any transfusions. The patient's pulmonary symptoms are much improved. The patient can receive dialysis in the a.m. and then can begin discharge planning. TID: [id number] RECEIPT: [id number]
--- NOTE | 2025-01-14 10:09 | PN ---
[facility] PROGRESS NOTE Date of Service: Jan 14, 2025 Time of Service: 10:06 SUBJECTIVE: [69-year-old female admitted due to shortness of breaths. During admission, patient was unable to answer question as she was placed on BiPAP support. But today patient on2 L via nasal cannula still with shortness of breaths as noted on accessory muscle and unable to speak in full sentences. We will continue to monitor patient and follow recommendations from the rest of the team.] REVIEW OF SYSTEMS CONSTITUTIONAL: Denies fevers, chills, or night sweats. No unintentional weight loss reported. NEUROLOGICAL: Denies headache, amaurosis fugax, motor weakness, sensory deficit, vertigo/spinning sensation, gait abnormalities, or tremors. ENT: No hearing loss, otalgia, otorrhea, rhinitis, rhinorrhea, hoarseness, or sore throat. CARDIOVASCULAR: Denies any exertional angina, dyspnea on exertion, orthopnea, paroxysmal nocturnal dyspnea, palpitations, life-threatening arrhythmias, claudication. PULMONARY: Denies any shortness of breath, cough, phlegm/sputum, hemoptysis, pleuritic chest pain. SLEEP: Denies morning headaches, daytime somnolence or napping. Denies difficulty falling asleep, staying asleep, waking from sleep. Denies knowledge of snoring. GASTROINTESTINAL: Denies any type of dysphagia to either liquids or solids. Denies nausea, vomiting, pyrosis, early satiety, abdominal pain, diarrhea, constipation, or changes in stool consistency or caliber. Denies coffee-ground emesis, hematemesis, hematochezia, or melanotic stools. GENITOURINARY: Denies frequency, urgency, nocturia, hematuria or incontinence (Storage/Irritative symptoms.) Low urinary stream, straining to void, urinary intermittency or hesitancy, splitting of the voiding stream, terminal dribbling. ENDOCRINOLOGIC: Denies polyuria, polydipsia, polyphagia or heat/cold intolerances. HEMATOLOGIC: Denies thrombophilia/previous clots, or coagulopathy/bleeding disorders. ONCOLOGIC: Denies personal history of malignancy. DERMATOLOGIC: Denies rashes or pruritus. PSYCHIATRIC: Denies any suicidal or homicidal ideation. Denies hallucinations. PHYSICAL EXAM GENERAL APPEARANCE: The patient is awake, alert, and oriented, in no acute cardiopulmonary distress. NEUROLOGICAL: Cranial nerves II-XII grossly intact. Motor is 5/5 in bilateral upper and lower extremities proximal to distal. No sensory deficits. HEENT: Face is symmetric. Pupils are equal and reactive. Extraocular movements are intact. NECK: Supple. No JVD. No thyromegaly. No submental, submandibular, pre- /postauricular, occipital or supraclavicular lymphadenopathy. CHEST: Normal chest expansion. No Telemetry. LUNGS: Absence of any rales, rhonchi or any wheezing. CARDIOVASCULAR: Regular. S1 and S2 normal. No appreciable rubs, murmurs or gallops. ABDOMEN: Soft, nontender, and nondistended. There is no rebound, voluntary guarding, or rigidity. : Deferred. No Kim. EXTREMITIES: Non-edematous and not cyanotic. No clubbing. Good capillary refill. SKIN: No skin breakdown. Vital Signs (last 8hr) Date Time Temp Pulse Resp B/P (MAP) Pulse Ox O2 Delivery O2 Flow Rate FiO2 01/14/25 07:44 97.9 82 21 136/50 98 Nasal Cannula 1.0 01/14/25 04:18 98.1 81 15 129/44 100 LABS: Laboratory: Test 01/14/25 06:41 01/14/25 06:03 01/14/25 04:07 01/13/25 16:04 Range/Units Whole Blood Glucose 99 70-110 MG/DL White Blood Count 5.0 4.8-10.8 K/uL Red Blood Count 2.45 L 4.00-5.50 MIL/uL Hemoglobin 7.5 L 12.0-16.0 g/dL Hematocrit 25.0 #L 36-48 % Mean Corpuscular Volume 102.0 H 79-99 fL Mean Corpuscular Hemoglobin 30.6 27.0-33.0 pg Mean Corpuscular Hemoglobin Concent 30.0 L 32.0-36.0 g/dL Red Cell Distribution Width 16.9 H 11.0-15.5 % Platelet Count 201 # 130-400 K/uL Mean Platelet Volume 10.0 7.5-10.5 fL Immature Granulocyte % (Auto) 0.8 0-1 % Neutrophils (%) (Auto) 92.0 H 40.0-77.0 % Lymphocytes (%) (Auto) 5.8 L 21.0-51.0 % Monocytes (%) (Auto) 1.2 L 3.0-13.0 % Eosinophils (%) (Auto) 0.2 0.0-8.0 % Basophils (%) (Auto) 0.0 0.0-5.0 % Neutrophils # (Auto) 4.6 1.8-7.7 K/uL Lymphocytes # (Auto) 0.3 L 1.0-4.8 K/uL Monocytes # (Auto) 0.1 0.1-1.0 K/uL Eosinophils # (Auto) 0.01 0.00-0.70 K/uL Basophils # (Auto) 0.00 0.00-0.20 K/uL Absolute Immature Granulocyte (auto 0.04 0-1 K/uL Nucleated Red Blood Cells 0.0 0.0-0.19 % B-Type Natriuretic Peptide 1980 H 0-100 pg/mL Sodium Level 132 L 136-145 mmol/L Potassium Level 4.8 3.5-5.1 mmol/L Chloride Level 95 L 101-111 mmol/L Carbon Dioxide Level 27 21-32 mmol/L Blood Urea Nitrogen 46 H 7-18 mg/dL Creatinine 4.4 H 0.5-1.0 mg/dL Glomerular Filtration Rate Calc 10 >90 mL/min Random Glucose 116 H 70-105 mg/dL Total Calcium 8.0 L 8.5-10.1 mg/dL Phosphorus Level 7.2 H 2.5-4.9 mg/dL Magnesium Level 2.00 1.80-2.40 mg/dL Procalcitonin 5.17 H 0.05-0.5 ng/mL Influenza Type A Antigen Negative For Type A NEGATIVE Influenza Type B Antigen Negative For Type B NEGATIVE SARS-CoV-2 Antigen (Rapid) PRESUMPTIVE NEGATIVE NEGATIVE Test 01/13/25 14:46 01/13/25 12:01 01/13/25 09:05 01/13/25 07:33 Range/Units Total Creatine Kinase 37 21-232 U/L Troponin I High Sensitivity 454 *H 4-50 ng/L Blood Gas Specimen Type Arterial Arterial Blood pH 7.326 L 7.350-7.450 Arterial Blood Partial Pressure CO2 52 H 32-45 mmHg Arterial Blood Partial Pressure O2 119.6 H 83.0-108.0 mmHg Arterial Blood HCO3 26.4 21.0-28.0 mmol/L Arterial Blood Oxygen Saturation 97.7 94.0-98.0 % Arterial Blood Base Excess 0.0 -2.0-3.0 mmol/L Hemoglobin (Blood Gas) 9.6 L 12.0-16.0 g/dL Sodium (Blood Gas) 132 L 136-145 MMOL/L Bedside Potassium (Blood Gas) 3.6 3.4-4.5 MMOL/L Bedside Chloride (Blood Gas) 94 L 98-107 MMOL/L Bedside Glucose (Blood Gas) 119 H 65-95 MG/DL Bedside Ionized Calcium (Blood Gas) 1.07 L 1.15-1.33 MMOL/L Bedside Lactic Acid (Blood Gas) 0.87 H 0.36-0.75 MMOL/L Blood Gas Temperature 37.0 35.5-37.0 CELSIUS Blood Gas Respiration Rate 24.0 min. Blood Gas Vent Mode BIPAP 12-6 ROOM AIR FiO2 50.0 % Blood Gas Specimen Comment RB.YARELY Hepatitis B Surface Antigen. Non-Reactive Nonreactive Hepatitis B Surface Antibody. Negative L Reactive Hepatitis B Core Total Antibody. Non-Reactive Nonreactive Hepatitis C Antibody Non-Reactive Nonreactive Reticulocyte Count (auto) 3.39540 H 0.42-2.23 % Immature Reticulocyte Fraction 14.20 H 0.18-0.48 % Lactic Acid Level 1.0 0.8-2.5 mmol/L Iron Level 22 L 50-170 mcg/dL Total Iron Binding Capacity 229 L 250-450 mcg/dL Percent Iron Saturation 9.6 L 22-44 % Lactate Dehydrogenase 189 81-234 U/L Vitamin B12 Level 573 193-986 pg/mL Folic Acid (LAB) 7.50 2-20 ng/mL Test 01/13/25 02:12 Range/Units White Cell Morphology Comment See comments Red Blood Cell Morphology See comments Hemoglobin A1c 5.0 4.0-6.0 % Estimated Average Glucose (eAG) 97 70-126 mg/dL Current Medications Medications (Trade) Dose Ordered Sig/Carlene Route PRN Reason Start Time Stop Time Status Last Admin Dose Admin Acetaminophen (TYLenol 325MG TAB) 650 mg Q6H PRN PO TEMPERATURE GREATER THAN 101.5 01/13/25 03:30 02/12/25 03:29 01/14/25 00:07 650 MG Albuterol (DUOneb) 1 UDVIAL [id number] 01/13/25 06:00 02/12/25 05:59 01/14/25 06:33 1 UDVIAL Albuterol Sulfate (Proventil 0.083% 2.5mg/3ml) 10 mg ONCE IH 01/13/25 03:30 01/13/25 06:18 DC 01/13/25 03:38 10 MG Aspirin (Aspirin 81mg Chew Tab) 81 mg DAILY PO 01/14/25 09:00 02/13/25 08:59 01/14/25 09:34 81 MG Atorvastatin Calcium (LIPItor 40MG) 40 mg HS PO 01/13/25 21:00 02/12/25 20:59 01/13/25 22:57 40 MG Cefepime HCl (MAXipime 1 GM vial) 1 gm Q24H IVPB 01/13/25 03:00 01/13/25 03:28 DC 01/13/25 02:57 1 GM Ceftriaxone Sodium (ROCEphine 1G INJ) 1 gm Q24H IV 01/13/25 03:30 01/13/25 08:16 DC 01/13/25 04:08 1 GM Doxycycline Hyclate 250 ml @ 125 mls/hr Q12H IV 01/13/25 03:30 01/23/25 03:29 01/14/25 02:48 125 MLS/HR Epoetin Sayta-epbx (Retacrit) 10,000 unit QMOWEFR[DIALYSIS] SQ 01/13/25 16:00 02/12/25 15:59 01/13/25 17:31 10,000 UNIT Heparin Sodium (Porcine) (HEParin 5,000 UNIT VIAL) 5,000 unit BID SQ 01/13/25 09:00 02/12/25 08:59 01/14/25 09:35 5,000 UNIT Heparin Sodium (Porcine) (HEParin 5,000 UNIT VIAL) 10,000 unit AD IRRIG 01/13/25 08:30 02/12/25 08:29 01/13/25 10:57 10,000 UNIT Hydralazine HCl (APRESOLine 20MG INJ) 10 mg Q6H PRN IV For:SBP above 160;DBP above 90 01/13/25 03:30 02/12/25 03:29 Insulin Human Regular (humuLIN R 100 UNIT/ML 3ML) INSULIN SLIDING SCAL... ACHS SQ 01/13/25 07:30 02/12/25 07:29 Methylprednisolone Sodium Succinate (Solu-medROL 40MG) 40 mg Q8H IVP 01/13/25 12:00 02/12/25 11:59 01/14/25 04:45 40 MG Morphine Sulfate (morPHINE 2MG SYG) 2 mg Q4H PRN IVP SEVERE PAIN (7-10) 01/13/25 03:30 01/20/25 03:29 Ondansetron HCl (zoFRAN 4MG INJ) 4 mg Q6H PRN IV NAUSEA/VOMITING 01/13/25 03:30 02/12/25 03:29 Pantoprazole Sodium (PROTonix 40MG TAB) 40 mg DAILY PO 01/13/25 09:00 02/12/25 08:59 01/14/25 09:34 40 MG Piperacillin Sod/ Tazobactam Sod (Zosyn 3.375gm+NS 50ml) 3.375 gm Q12H IV 01/13/25 08:30 01/23/25 08:29 01/14/25 09:34 3.375 GM Sevelamer HCl (RENAgel 800 MG TAB) 800 mg TIDMEALS PO 01/14/25 12:00 02/13/25 11:59 Sodium Chloride 1,000 ml @ 0 mls/hr ONCE IV 01/13/25 09:30 02/12/25 09:29 Vancomycin HCl (Vancomycin Protocol) 1 each AD IV 01/13/25 03:00 01/27/25 02:59 DIAGNOSTICS / RADIOLOGY: [place] [address] IMAGING REPORT Signed PATIENT: ALLISON GONZALES MR#: [id number] : 1955 SEX: F AGE: 69 LOCATION: 2CH ORDER 230 STATUS: ADM IN REPORT#: [id number] SERVICE [id number] REASON: hypoxia ORDERING PHYSICIAN: MATT LAWRENCE PROCEDURE: CXR1VW - CHEST 1VW CHEST 1VW HISTORY: Hypoxia COMPARISON: 01/13/2025 FINDINGS: A frontal projection of the chest was obtained. Right lung pulmonary infiltrates and right pleural effusions are seen. The heart is borderline enlarged. Degenerative changes are seen. No evidence of aortic calcification is seen. IMPRESSION: 1. Right lung infiltrates and right pleural effusion. DICTATED BY: PJ MAXWELL MD DATE: 01/14/25908 ELECTRONICALLY SIGNED BY: PJ MAXWELL MD DATE: 01/14/25911 ] ASSESSMENT: [Suspected aspiration pneumonia, POA Acute hypercapnic respiratory failure requiring BiPAP POA Suspected healthcare associated pneumonia, POA Acute on chronic heart failure, POA Acute metabolic encephalopathy POA Bilateral pleural effusions R>L POA ESRD on HD, POA requiring emergent dialysis Hyperglycemia in the presence of type 2 diabetes mellitus Hyperkalemia, POA Hypocalcemia, POA Leukocytosis, POA Macrocytic normochromic anemia, POA Uncontrolled Diabetes mellitius type2, POA Functional quadriplegia Suspected pneumonia ] PLAN: [Continue admission to ICU Continue with oxygen supplementation to keep O2 sat greater than 92% Appreciate recommendations from critical Care team Continue with a.c. and HS glucometer and insulin sliding scale We will continue to monitor electrolytes and replete as necessary per renal protocol Appreciate recommendations from Nephrology for inpatient dialysis treatment We will request physical therapy to eval and treat GI and DVT prophylaxis We will repeat labs tomorrow Patient was seen and examined with Dr. Aden, above plan was formulated Critical care time: Spent 35 minutes of critical care time with the patient. Reviewed the lab work, reconciled and updated patient's medications, and coordinated plan of care in ICU. ] ATTESTATION BY PHYSICIAN I have seen and examined the patient. I reviewed the documentation, medical decision making, and treatment plan as noted by the mid-level provider above. I agree with the findings and plan of care. Landy Nick MD, [facility] Jan 14, 2025 10:09
--- NOTE | 2025-01-14 10:42 | PN ---
[facility] PROGRESS NOTE Date Patient Seen: Jan 14, 2025 Time of Visit: 10:42 Supervising Physician: Dr. Bray Primary Care Physician: Self Referral Outpatient Specialists: [ ] Inpatient Consults: Dr Sylvia ALOMNTE PROBLEM LIST: Acute hypercapnic respiratory failure requiring BiPAP POA Healthcare associated pneumonia, POA Acute on chronic heart failure, POA Acute metabolic encephalopathy POA Bilateral pleural effusions R>L POA ESRD on HD, POA requiring emergent dialysis Hyperglycemia in the presence of type 2 diabetes mellitus Hyperkalemia, POA Hypocalcemia, POA Leukocytosis, POA Macrocytic normochromic anemia, POA Uncontrolled Diabetes mellitius type2, POA Functional quadriplegia INTERVAL HISTORY: 01/14/2025: At the time of my evaluation the patient was lying in bed. The staff nurse reports no acute events overnight. The patient's main complaint is shortness of breath with minimal exertion. The patient remains on nasal cannula for oxygen supplementation otherwise is hemodynamically stable on the monitor. Laboratory data obtained today was notable for a drop in H&H to 7.5/25.0 and a platelet count of 201. Chemistry panel today was notable for a sodium of 132, chloride of 95, BUN of 46, creatinine of 4.4 and a GFR of 10. BNP level today 1980. Procalcitonin of 5.17. Blood cultures x2 are currently negative and respiratory culture showing Gram-positive cocci in chains and clusters. Chest imaging for today showed right lung infiltrate and a right-sided pleural effusion. Currently, the patient is on antibiotic therapy with Zosyn, doxy combination. Also, the patient is on Solu-Medrol 40 q.8h. No other complaint. REVIEW OF SYSTEMS: Unable to perform due to encephalopathy. PHYSICAL EXAM: GENERAL: Awake to voice answers to person and place. Chronically ill. HEENT: EOMI, Sclera non icteric, moist mucosa NECK: Supple, no JVD, trachea midline LUNGS: Diminished breath sounds bilaterally. No wheezes HEART: Regular rate and rhythm. Normal S1 and S2, without murmurs ABD: Abdomen soft, nontender. Bowel sounds present EXT: No clubbing cyanosis or edema NEURO: No focal deficits, GCS of 14, follows commands. Vital Signs (last 8hr) Date Time Temp Pulse Resp B/P (MAP) Pulse Ox O2 Delivery O2 Flow Rate FiO2 01/14/25 08:10 83 18 N/Cannula Low lpm 2.0 28 01/14/25 07:44 97.9 82 21 136/50 98 Nasal Cannula 1.0 01/14/25 06:33 87 20 01/14/25 04:18 98.1 81 15 129/44 100 LABS: Hematology Labs: Test 01/14/25 06:03 01/13/25 07:33 01/13/25 02:12 Range/Units White Blood Count 5.0 4.8-10.8 K/uL Red Blood Count 2.45 L 4.00-5.50 MIL/uL Hemoglobin 7.5 L 12.0-16.0 g/dL Hematocrit 25.0 #L 36-48 % Mean Corpuscular Volume 102.0 H 79-99 fL Mean Corpuscular Hemoglobin 30.6 27.0-33.0 pg Mean Corpuscular Hemoglobin Concent 30.0 L 32.0-36.0 g/dL Red Cell Distribution Width 16.9 H 11.0-15.5 % Platelet Count 201 # 130-400 K/uL Mean Platelet Volume 10.0 7.5-10.5 fL Immature Granulocyte % (Auto) 0.8 0-1 % Neutrophils (%) (Auto) 92.0 H 40.0-77.0 % Lymphocytes (%) (Auto) 5.8 L 21.0-51.0 % Monocytes (%) (Auto) 1.2 L 3.0-13.0 % Eosinophils (%) (Auto) 0.2 0.0-8.0 % Basophils (%) (Auto) 0.0 0.0-5.0 % Neutrophils # (Auto) 4.6 1.8-7.7 K/uL Lymphocytes # (Auto) 0.3 L 1.0-4.8 K/uL Monocytes # (Auto) 0.1 0.1-1.0 K/uL Eosinophils # (Auto) 0.01 0.00-0.70 K/uL Basophils # (Auto) 0.00 0.00-0.20 K/uL Absolute Immature Granulocyte (auto 0.04 0-1 K/uL Nucleated Red Blood Cells 0.0 0.0-0.19 % Reticulocyte Count (auto) 3.05279 H 0.42-2.23 % Immature Reticulocyte Fraction 14.20 H 0.18-0.48 % White Cell Morphology Comment See comments Red Blood Cell Morphology See comments Chemistry Labs: Test 01/14/25 06:41 01/14/25 06:03 01/14/25 04:07 01/13/25 14:46 Range/Units Whole Blood Glucose 99 70-110 MG/DL B-Type Natriuretic Peptide 1980 H 0-100 pg/mL Sodium Level 132 L 136-145 mmol/L Potassium Level 4.8 3.5-5.1 mmol/L Chloride Level 95 L 101-111 mmol/L Carbon Dioxide Level 27 21-32 mmol/L Blood Urea Nitrogen 46 H 7-18 mg/dL Creatinine 4.4 H 0.5-1.0 mg/dL Glomerular Filtration Rate Calc 10 >90 mL/min Random Glucose 116 H 70-105 mg/dL Total Calcium 8.0 L 8.5-10.1 mg/dL Phosphorus Level 7.2 H 2.5-4.9 mg/dL Magnesium Level 2.00 1.80-2.40 mg/dL Procalcitonin 5.17 H 0.05-0.5 ng/mL Total Creatine Kinase 37 21-232 U/L Troponin I High Sensitivity 454 *H 4-50 ng/L Test 01/13/25 07:33 01/13/25 02:12 Range/Units Lactic Acid Level 1.0 0.8-2.5 mmol/L Iron Level 22 L 50-170 mcg/dL Total Iron Binding Capacity 229 L 250-450 mcg/dL Percent Iron Saturation 9.6 L 22-44 % Lactate Dehydrogenase 189 81-234 U/L Vitamin B12 Level 573 193-986 pg/mL Folic Acid (LAB) 7.50 2-20 ng/mL Hemoglobin A1c 5.0 4.0-6.0 % Estimated Average Glucose (eAG) 97 70-126 mg/dL DIAGNOSTICS / RADIOLOGY RESULTS: [ ] PLAN Monitor respiratory status closely Maintain O2 sats above 92% Continuous telemetry monitoring CBC, cardiac troponin, electrolytes, BUN and creatinine labs in a.m. Chest x-ray in the morning Strict I&O Hydralazine p.r.n. for hypertension Hemodialysis per explosive operator fuse Fluid restriction 1.5-2 L Renal diet Daily weight Avoid blood transfusions unless absolutely necessary with a hemoglobin less than seven BiPAP at night and prn -Arrange outpatient pulmonology referral for sleep study, PFT and follow-up management upon discharge GI and DVT prophylaxis with Protonix and heparin. 01/14/2025: For now, going to continue current management for the patient. We will continue oxygen supplementation as necessary, we will continue bronchodilation therapy, inhaled steroid as well as systemic steroids. We will continue antibiotic coverage as ordered and we will follow the patient's progress and response to management. The patient will continue renal replacement therapy per the guidance of the explosive operator fuse. 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 We will repeat surveillance labs in the morning. We will monitor the patient's progress and response to management. We will continue to provide general supportive care, GI and DVT prophylaxis. Further orders per attending MD and hospital co chele. NEURO: Minimize central acting medications as possible. Fall Precautions. Well lighted room through the day and minimize interruptions through the night to prevent acute delirium. PULMONARY: Supplemental 02 as needed Titrate Fio2 to keep Spo2 > or = 90% DuoNebs and CPT as needed IS hourly while awake for pulmonary hygiene Out of bed to chair as tolerated BiPAP 12/6 50% CARDIOVASCULAR: Follow hemodynamics. Titrate vasopressor to keep MAP >65 or systolic blood pressure >95mmHg Drips: None LINES: PIV GI & NUTRITION: Continue nutritional support Aspirations precautions Prokinetic agents and laxatives as needed Renal diet KIDNEYS & ELECTROLYTES: Strict monitoring of intake and output Daily weights Avoid nephrotoxic agents Monitor electrolytes and replace as needed Goal urine output of 30mL/hr or 0.5mL/kg/hr Urine output: [ ] Fluid Balance: [ ] ENDOCRINE: Maintain blood glucose between 100-180 at all times. Insulin sliding scale for blood glucose management INFECTIOUS DISEASE: Trend temperature. Goff-culture if febrile. Micro: [ ] Blood cultures Respiratory cultures Influenza- COVID-19- Antibiotics: Vancomycin Zosyn and Doxycycline HEMATOLOGY & COAGULATION: Monitor H&H. Keep Hgb > 7 Transfuse 1 unit of PRBC for Hgb < 7 Transfuse 1 pack of platelets of platelets < 20, 000 Watch for any signs and symptoms of bleeding SKIN: Pressure ulcer prevention per facility protocol Rehab: PT/OT Prophylaxis: GI: Protonix DVT: Heparin Code Status: Full Resuscitation Disposition: PCCU Other: Total patient care time exceeds 35 minutes excluding all procedures. Case was discussed and seen with my supervising physician. The above plan was formulated and agreed upon. BIJU PAINTER [employer] WAREHOUSE MANAGER Jan 14, 2025 10:42
--- NOTE | 2025-01-14 12:15 | NUR ---
[facility] Consult: Patient assessed by wound healing team. See wound assessment. Assessment and recommendations provided to primary nurse. Education provided. Addendum: 01/14/25 at 1427 by SHIMON MUSA RN RN/ Amended: Links added.
[2025-01-14] MEDS: sevELAMer HCL 800 MG TABLET PO SCH (12:31)
--- NOTE | 2025-01-14 14:15 | NUR ---
BEDSIDE SWALLOW EVAL COMPLETED. +s/s of aspiration. Recommend minced and moist solids, moderately thick liquids and pills crushed with pureed solids until MBSS. Compensatory strategies: 1. sit upright during oral intake 2. small bites/sips 3. slow oral intake 4. no straws LABEL PRESS OPERATOR reviewed results and recommendations with patient and nurse Lukasz. No family present at time of visit. LABEL PRESS OPERATOR educated patient on risks and consequences of aspiration. Speech therapy will follow up to evaluate via MBSS. All questions answered. Addendum: 01/14/[address] [facility] Amended: Links added.
--- NOTE | 2025-01-14 15:50 | NUR ---
PT held, patient RR >40 at rest on 3L . Pt with AUGUSTE with speaking, trying to answer questions. Pt oriented to self. PT to follow when patient is able to participate
[2025-01-14] MEDS ORDERED: sevELAMer HCL 800 MG TABLET PO SCH (17:00)
[2025-01-14] MEDS: BUDESONIDE 0.5 MG/2 ML INH IH ONE (18:41)
[2025-01-14] MEDS: BUDESONIDE 0.5 MG/2 ML INH IH SCH (18:41)
[2025-01-14] MEDS ORDERED: atorVAStatin 40 MG TABLET PO SCH (21:00)
[2025-01-14] MEDS: IRON sUCROse COMPLEX 300 MG in 0.9% NACL 250ML 250 ML IV ONE (21:43)
[2025-01-14] MEDS: hydrALAZine 25MG TABLET PO SCH (21:46)
[2025-01-14] MEDS: metoPROLOL tartRATE 50 MG TAB PO SCH (21:46)
[2025-01-15] VITALS (28 sets, daily range): BP systolic 120–150; BP diastolic 46–67; PULSE 69–91; RESP 14–24; TEMP 96.4–98; O2SAT 94–99
[2025-01-15 05:38] LABS: HEMATOCRIT 28.1 % (36-48); MEAN CORPUSCULAR HEMOGLOBIN 30.4 pg (27.0-33.0); MEAN CORPUSCULAR HGB CONC 29.2 g/dL (32.0-36.0); MEAN CORPUSCULAR VOLUME 104.1 fL (79-99); NUCLEATED RED BLOOD CELLS 0.8 % (0.0-0.19); RED BLOOD CELL COUNT(AUTO) 2.7 MIL/uL (4.00-5.50); RED CELL DISTRIBUTION WIDTH 16.6 % (11.0-15.5); WHITE BLOOD COUNT (AUTO) 7.3 K/uL (4.8-10.8)
[2025-01-15 05:52] LABS: CREATININE 5.4 mg/dL (0.5-1.0); POTASSIUM 5.2 mmol/L (3.5-5.1); VANCOMYCIN LEVEL 8.5 mcg/mL (20.0-30.0)
--- NOTE | 2025-01-15 06:54 | PN ---
[facility] PROGRESS NOTE Date of Service: Jan 15, 2025 Time of Service: 06:49 SUBJECTIVE: [69-year-old female admitted due to shortness of breaths. She has h/o ESRD on HD. Overnight, patient had a change on condition where she was placed back on oxygen supplementation from NC to ventimask to BIPAP which is now improved her status, she is saturating at 98%. Her labs reviewed, kidney function worsening. REVIEW OF SYSTEMS CONSTITUTIONAL: Denies fevers, chills, or night sweats. No unintentional weight loss reported. NEUROLOGICAL: Denies headache, amaurosis fugax, motor weakness, sensory deficit, vertigo/spinning sensation, gait abnormalities, or tremors. ENT: No hearing loss, otalgia, otorrhea, rhinitis, rhinorrhea, hoarseness, or sore throat. CARDIOVASCULAR: Denies any exertional angina, dyspnea on exertion, orthopnea, paroxysmal nocturnal dyspnea, palpitations, life-threatening arrhythmias, claudi cation. PULMONARY: Denies any shortness of breath, cough, phlegm/sputum, hemoptysis, pleuritic chest pain. SLEEP: Denies morning headaches, daytime somnolence or napping. Denies difficulty falling asleep, staying asleep, waking from sleep. Denies knowledge of snoring. GASTROINTESTINAL: Denies any type of dysphagia to either liquids or solids. Denies nausea, vomiting, pyrosis, early satiety, abdominal pain, diarrhea, constipation, or changes in stool consistency or caliber. Denies coffee-ground emesis, hematemesis, hematochezia, or melanotic stools. GENITOURINARY: Denies frequency, urgency, nocturia, hematuria or incontinence (Storage/Irritative symptoms.) Low urinary stream, straining to void, urinary intermittency or hesitancy, splitting of the voiding stream, terminal dribbling. ENDOCRINOLOGIC: Denies polyuria, polydipsia, polyphagia or heat/cold intolerances. HEMATOLOGIC: Denies thrombophilia/previous clots, or coagulopathy/bleeding disorders. ONCOLOGIC: Denies personal history of malignancy. DERMATOLOGIC: Denies rashes or pruritus. PSYCHIATRIC: Denies any suicidal or homicidal ideation. Denies hallucinations. PHYSICAL EXAM GENERAL APPEARANCE: The patient is awake, alert, and oriented, in no acute cardiopulmonary distress. NEUROLOGICAL: Cranial nerves II-XII grossly intact. Motor is 5/5 in bilateral upper and lower extremities proximal to distal. No sensory deficits. HEENT: Face is symmetric. Pupils are equal and reactive. Extraocular movements are intact. NECK: Supple. No JVD. No thyromegaly. No submental, submandibular, pre- /postauricular, occipital or supraclavicular lymphadenopathy. CHEST: Normal chest expansion. No Telemetry. LUNGS: Absence of any rales, rhonchi or any wheezing. CARDIOVASCULAR: Regular. S1 and S2 normal. No appreciable rubs, murmurs or gallops. ABDOMEN: Soft, nontender, and nondistended. There is no rebound, voluntary guarding, or rigidity. : Deferred. No Kim. EXTREMITIES: Non-edematous and not cyanotic. No clubbing. Good capillary refill. SKIN: No skin breakdown. Vital Signs (last 8hr) Date Time Temp Pulse Resp B/P (MAP) Pulse Ox O2 Delivery O2 Flow Rate FiO2 01/15/25 03:47 96.4 69 24 120/50 98 BIPAP 01/15/25 01:55 16 50 01/14/25 23:42 66 24 01/14/25 23:29 68 26 50 01/14/25 23:20 97.3 66 16 113/43 91 Venti Mask 15.0 LABS: Laboratory: Test 01/15/25 05:08 01/15/25 05:04 01/14/25 19:36 01/14/25 06:03 Range/Units White Blood Count 7.3 # 4.8-10.8 K/uL Red Blood Count 2.70 L 4.00-5.50 MIL/uL Hemoglobin 8.2 L 12.0-16.0 g/dL Hematocrit 28.1 L 36-48 % Mean Corpuscular Volume 104.1 H 79-99 fL Mean Corpuscular Hemoglobin 30.4 27.0-33.0 pg Mean Corpuscular Hemoglobin Concent 29.2 L 32.0-36.0 g/dL Red Cell Distribution Width 16.6 H 11.0-15.5 % Platelet Count 192 130-400 K/uL Mean Platelet Volume 10.1 7.5-10.5 fL Nucleated Red Blood Cells 0.8 H 0.0-0.19 % Sodium Level 131 L 136-145 mmol/L Potassium Level 5.2 H 3.5-5.1 mmol/L Chloride Level 95 L 101-111 mmol/L Carbon Dioxide Level 24 21-32 mmol/L Blood Urea Nitrogen 76 *H 7-18 mg/dL Creatinine 5.4 H 0.5-1.0 mg/dL Glomerular Filtration Rate Calc 8 >90 mL/min Random Glucose 136 H 70-105 mg/dL Total Calcium 7.3 L 8.5-10.1 mg/dL Procalcitonin 5.68 H 0.05-0.5 ng/mL Vancomycin Level 8.5 L 20.0-30.0 mcg/mL Whole Blood Glucose 133 H 70-110 MG/DL Bedside Glucose Comment Notified Nurse Immature Granulocyte % (Auto) 0.8 0-1 % Neutrophils (%) (Auto) 92.0 H 40.0-77.0 % Lymphocytes (%) (Auto) 5.8 L 21.0-51.0 % Monocytes (%) (Auto) 1.2 L 3.0-13.0 % Eosinophils (%) (Auto) 0.2 0.0-8.0 % Basophils (%) (Auto) 0.0 0.0-5.0 % Neutrophils # (Auto) 4.6 1.8-7.7 K/uL Lymphocytes # (Auto) 0.3 L 1.0-4.8 K/uL Monocytes # (Auto) 0.1 0.1-1.0 K/uL Eosinophils # (Auto) 0.01 0.00-0.70 K/uL Basophils # (Auto) 0.00 0.00-0.20 K/uL Absolute Immature Granulocyte (auto 0.04 0-1 K/uL B-Type Natriuretic Peptide 1980 H 0-100 pg/mL Test 01/14/25 04:07 01/13/25 16:04 01/13/25 14:46 01/13/25 12:01 Range/Units Phosphorus Level 7.2 H 2.5-4.9 mg/dL Magnesium Level 2.00 1.80-2.40 mg/dL Influenza Type A Antigen Negative For Type A NEGATIVE Influenza Type B Antigen Negative For Type B NEGATIVE SARS-CoV-2 Antigen (Rapid) PRESUMPTIVE NEGATIVE NEGATIVE Total Creatine Kinase 37 21-232 U/L Troponin I High Sensitivity 454 *H 4-50 ng/L Blood Gas Specimen Type Arterial Arterial Blood pH 7.326 L 7.350-7.450 Arterial Blood Partial Pressure CO2 52 H 32-45 mmHg Arterial Blood Partial Pressure O2 119.6 H 83.0-108.0 mmHg Arterial Blood HCO3 26.4 21.0-28.0 mmol/L Arterial Blood Oxygen Saturation 97.7 94.0-98.0 % Arterial Blood Base Excess 0.0 -2.0-3.0 mmol/L Hemoglobin (Blood Gas) 9.6 L 12.0-16.0 g/dL Sodium (Blood Gas) 132 L 136-145 MMOL/L Bedside Potassium (Blood Gas) 3.6 3.4-4.5 MMOL/L Bedside Chloride (Blood Gas) 94 L 98-107 MMOL/L Bedside Glucose (Blood Gas) 119 H 65-95 MG/DL Bedside Ionized Calcium (Blood Gas) 1.07 L 1.15-1.33 MMOL/L Bedside Lactic Acid (Blood Gas) 0.87 H 0.36-0.75 MMOL/L Blood Gas Temperature 37.0 35.5-37.0 CELSIUS Blood Gas Respiration Rate 24.0 min. Blood Gas Vent Mode BIPAP 12-6 ROOM AIR FiO2 50.0 % Blood Gas Specimen Comment [id number].[email or web address]-RN Test 01/13/25 09:05 01/13/25 07:33 Range/Units Hepatitis B Surface Antigen. Non-Reactive Nonreactive Hepatitis B Surface Antibody. Negative L Reactive Hepatitis B Core Total Antibody. Non-Reactive Nonreactive Hepatitis C Antibody Non-Reactive Nonreactive Reticulocyte Count (auto) 3.27294 H 0.42-2.23 % Immature Reticulocyte Fraction 14.20 H 0.18-0.48 % Lactic Acid Level 1.0 0.8-2.5 mmol/L Iron Level 22 L 50-170 mcg/dL Total Iron Binding Capacity 229 L 250-450 mcg/dL Percent Iron Saturation 9.6 L 22-44 % Lactate Dehydrogenase 189 81-234 U/L Vitamin B12 Level 573 193-986 pg/mL Folic Acid (LAB) 7.50 2-20 ng/mL Current Medications Medications (Trade) Dose Ordered Sig/Carlene Route PRN Reason Start Time Stop Time Status Last Admin Dose Admin Acetaminophen (TYLenol 325MG TAB) 650 mg Q6H PRN PO TEMPERATURE GREATER THAN 101.5 01/13/25 03:30 02/12/25 03:29 01/14/25 00:07 650 MG Albuterol (DUOneb) 1 UDVIAL [id number] IH 01/13/25 06:00 02/12/25 05:59 01/14/25 23:42 1 UDVIAL Albuterol Sulfate (Proventil 0.083% 2.5mg/3ml) 10 mg ONCE IH 01/13/25 03:30 01/13/25 06:18 DC 01/13/25 03:38 10 MG Amlodipine Besylate (NorvASC 5MG TAB) 5 mg DAILY PO 01/15/25 09:00 02/14/25 08:59 Aspirin (Aspirin 81mg Chew Tab) 81 mg DAILY PO 01/14/25 09:00 01/14/25 14:12 DC 01/14/25 09:34 81 MG Aspirin (Aspirin 81mg Chew Tab) 81 mg DAILY PO 01/15/25 09:00 02/14/25 08:59 Atorvastatin Calcium (LIPItor 40MG) 40 mg HS PO 01/13/25 21:00 02/12/25 20:59 01/14/25 21:45 40 MG Atorvastatin Calcium (LIPItor 40MG) 40 mg HS PO 01/14/25 21:00 01/14/25 14:12 DC Budesonide (Pulmicort 0.5 Mg/2ml) 0.5 mg BID IH 01/14/25 21:00 02/13/25 20:59 01/14/25 18:41 0.5 MG Calcitriol (Rocaltrol 0.25mcg Cap) 0.25 mcg DAILY PO 01/15/25 09:00 02/14/25 08:59 Cefepime HCl (MAXipime 1 GM vial) 1 gm Q24H IVPB 01/13/25 03:00 01/13/25 03:28 DC 01/13/25 02:57 1 GM Ceftriaxone Sodium (ROCEphine 1G INJ) 1 gm Q24H IV 01/13/25 03:30 01/13/25 08:16 DC 01/13/25 04:08 1 GM Doxycycline Hyclate 250 ml @ 125 mls/hr Q12H IV 01/13/25 03:30 01/23/25 03:29 01/15/25 03:20 125 MLS/HR Epoetin Satya-epbx (Retacrit) 10,000 unit QMOWEFR[DIALYSIS] SQ 01/13/25 16:00 02/12/25 15:59 01/13/25 17:31 10,000 UNIT Ferrous Sulfate (Ferrous Sulfate) 325 mg DAILY PO 01/15/25 09:00 02/14/25 08:59 Heparin Sodium (Porcine) (HEParin 5,000 UNIT VIAL) 5,000 unit BID SQ 01/13/25 09:00 02/12/25 08:59 01/14/25 21:41 5,000 UNIT Heparin Sodium (Porcine) (HEParin 5,000 UNIT VIAL) 10,000 unit AD IRRIG 01/13/25 08:30 02/12/25 08:29 01/13/25 10:57 10,000 UNIT Hydralazine HCl (APRESOLine 20MG INJ) 10 mg Q6H PRN IV For:SBP above 160;DBP above 90 01/13/25 03:30 02/12/25 03:29 Hydralazine HCl ([id number] TAB) 50 mg TID PO 01/14/25 21:00 02/13/25 20:59 01/14/25 21:46 50 MG Insulin Human Regular (humuLIN R 100 UNIT/ML 3ML) INSULIN SLIDING SCAL... ACHS SQ 01/13/25 07:30 02/12/25 07:29 01/14/25 21:40 2 UNIT Methylprednisolone Sodium Succinate (Solu-medROL 40MG) 40 mg Q8H IVP 01/13/25 12:00 02/12/25 11:59 01/15/25 03:26 40 MG Metoprolol Tartrate (loprESSOR) 50 mg BID PO 01/14/25 21:00 02/13/25 20:59 01/14/25 21:46 50 MG Morphine Sulfate (morPHINE 2MG SYG) 2 mg Q4H PRN IVP SEVERE PAIN (7-10) 01/13/25 03:30 01/20/25 03:29 Ondansetron HCl (zoFRAN 4MG INJ) 4 mg Q6H PRN IV NAUSEA/VOMITING 01/13/25 03:30 02/12/25 03:29 Pantoprazole Sodium (PROTonix 40MG TAB) 40 mg DAILY PO 01/13/25 09:00 02/12/25 08:59 01/14/25 09:34 40 MG Piperacillin Sod/ Tazobactam Sod (Zosyn 3.375gm+NS 50ml) 3.375 gm Q12H IV 01/13/25 08:30 01/23/25 08:29 01/14/25 21:42 3.375 GM Sevelamer HCl (RENAgel 800 MG TAB) 800 mg TIDAC PO 01/14/25 17:00 01/14/25 14:13 DC Sevelamer HCl (RENAgel 800 MG TAB) 800 mg TIDMEALS PO 01/14/25 12:00 02/13/25 11:59 01/14/25 17:22 800 MG Sodium Chloride 1,000 ml @ 0 mls/hr ONCE IV 01/13/25 09:30 02/12/25 09:29 Vancomycin HCl (Vancomycin Protocol) 1 each AD IV 01/13/25 03:00 01/27/25 02:59 DIAGNOSTICS / RADIOLOGY: [ ] ASSESSMENT: [Suspected aspiration pneumonia, POA Acute hypercapnic respiratory failure requiring BiPAP POA Suspected healthcare associated pneumonia, POA Acute on chronic heart failure, POA Acute metabolic encephalopathy POA Bilateral pleural effusions R>L POA ESRD on HD, POA requiring emergent dialysis Hyperglycemia in the presence of type 2 diabetes mellitus Hyperkalemia, POA Hypocalcemia, POA Leukocytosis, POA Macrocytic normochromic anemia, POA Uncontrolled Diabetes mellitius type2, POA Functional quadriplegia Suspected pneumonia ] PLAN: Downgraded to PCCU Continue with oxygen supplementation to keep O2 sat greater than 92% Patient is back on BIPAP support, weaning off now at 4lpm Appreciate recommendations from critical Care team Continue with a.c. and HS glucometer and insulin sliding scale We will continue to monitor electrolytes and replete as necessary per renal protocol Appreciate recommendations from Nephrology for inpatient dialysis treatment We will request physical therapy to eval and treat GI and DVT prophylaxis We will repeat labs tomorrow Patient was seen and examined with Dr. Aden above plan was formulated ATTESTATION BY PHYSICIAN I have seen and examined the patient. I reviewed the documentation, medical decision making, and treatment plan as noted by the mid-level provider above. I agree with the findings and plan of care. Landy Nick MD, [facility] Jan 15, 2025 06:54
[2025-01-15] MEDS: VANCOMYCIN 500MG+NS 100ML 100 ML IV ONE ×2 (07:00→12:27)
[2025-01-15] MEDS: FERROUS SULFATE 325 MG TABLET.DR PO SCH (08:20)
[2025-01-15] MEDS: amLODIPine 5 MG TAB PO SCH (08:20)
[2025-01-15] MEDS: ASPIRIN 81MG CHEW TAB PO SCH (08:20)
[2025-01-15] MEDS: CALCITRIOL 0.25 MCG CAP PO SCH (08:21)
--- NOTE | 2025-01-15 08:53 | PN ---
DIALYSIS NOTE SUBJECTIVE: The patient was seen and evaluated on hemodialysis, prescription noted. PHYSICAL EXAMINATION: VITAL SIGNS: Blood pressure 120/50. CARDIOVASCULAR: Regular. LUNGS: Coarse. IMPRESSION: ESRD. PLAN: The patient will continue with maximal ultrafiltration as blood pressure allows. The patient does not qualify for outpatient dialysis. She can safely be discharged from a renal standpoint. TID: [id number] RECEIPT: [id number]
--- NOTE | 2025-01-15 11:30 | NUR ---
PT follow up note: Patient on dialysis at time of visit. PT team to follow.
--- NOTE | 2025-01-15 11:31 | NUR ---
Nutritional Note: Pt on bipap. Pt lethargic and receiving HD at time of visit, no nutritional hx obtain from pt. LINE INSTALLER REPAIRER evaluation: minced /moist and MTL. No family present to provide additional hx. Pt denied any recent unintentional wt loss and/or poor appetite on admit. Recommend: -Nepro 1 can PRN and/or if PO intake drops <50% of meals taken. -Nephrovite MVI -If unable to meet needs orally evaluate for enteral nutrition NGT vs PEG if GI tract functional and safe - Electrolyte replacements per protocol -Monitor feeding tolerance, %, wt, and labs -If No BM >3days consider bowel stimulant. - f/u with MBSS to reassess feeding route. - Notify RD if additional nutrition concerns arise. SEE RD Nutritional Assessment for additional assessment information. Addendum: 01/15/25 at [address] Amended: Links added.
--- NOTE | 2025-01-15 14:00 | NUR ---
MBSS COMPLETED. No aspiration; deep non-transient penetrations with mildly thick liquids via tsp and mixed textures with no cough response. Recommend pureed solids, moderately thick liquids and pills crushed with pureed as tolerated. Compensatory strategies: 1. sit upright during oral intake 2. small bites/sips 3. slow oral intake 4. extra dry swallows 5. NO STRAWS DIAGNOSTIC FINDINGS: Pt presented with mild oral and mild to moderate pharyngeal dysphagia characterized by decreased lingual strength, decreased tongue base retraction; decreased hyo-laryngeal elevation/excursion delayed pharyngeal response trigger and decreased sensation evidenced by anterior spillage; prolonged and labored mastication (patient asked to be on pureed solids); tongue pumping; premature spillage to valleculae with spillover to pyriform sinuses; residue on base of tongue, valleculae, pyriform sinuses and posterior pharyngeal wall partially cleared with extra dry swallows; resulting in transient penetrations during the swallow with pudding thick textures; deep non-transient penetration during the swallow with first trial of moderately thick liquids via tsp likely due from residue of previous trial of mixed textures (moderately thick liquids re-attempted after study X3 with no penetrations); deep non-transient penetration during and after the swallow with mixed textures with no cough response; and deep non-transient penetrations during the swallow with mildly thick liquids via tsp with no cough response. No aspirations observed (thin liquids not administered). TECHNICAL PROGRAMS MANAGER reviewed results and recommendations with patient and nurse Yoni. TECHNICAL PROGRAMS MANAGER educated patient on risks and consequences of aspiration. Speech therapy warranted at this time to address oropharyngeal dysphagia. All questions answered. RECOMMENDATIONS: Dysphagia Therapy 1-3X week to increase oral motor strength and pharyngeal swallow: LTG#1: Pt will tolerate least restrictive diet to meet nutrition/hydration with no s/s of aspiration. LTG#2: Skilled education Pt/family/staff STG#1: Pt will participate in laryngeal elevation/excursion exercises with 80% accuracy and min A. STG#2: Pt will participate in tongue base retraction exercises with 80% acc/with Min A. STG#3: Pt will participate in oral motor exercises with 80% acc/with Min A. STG#4: Pt will tolerate modified diet of pureed solids and moderately thick liquids with no overt s/s of aspiration. STG#5: Pt will participate in advanced trials of minced and moist textures with no overt s/s of aspiration. STG#6: Skilled education Pt/family/staff. Addendum: 01/15/[address] [facility]RAVO [facility]ANUEL[facility] Amended: Links added.
--- NOTE | 2025-01-15 14:00 | NUR ---
REQUESTED PER COLLIN, SUPERVISOR FEED MILL I TOOK HER OFF OF THE OXYGEN AND DID A SPOT CHECK ON OXYGEN SATURATION AND SHE DIPPED DOWN TO 75% ON ROOM AIR. SHE WAS PLACED BACK ON 2L VIA NC AND HER OXYGEN SATURATION CAME BACK UP TO 98%. COLLIN WAS NOTIFIED AND IS AWARE.
--- NOTE | 2025-01-15 14:16 | PN ---
[facility] PROGRESS NOTE Date Patient Seen: Jan 15, 2025 Time of Visit: 14:16 Supervising Physician: Dr. Bary Primary Care Physician: Self Referral Outpatient Specialists: [ ] Inpatient Consults: Dr Sylvia ALMONTE PROBLEM LIST: Acute hypercapnic respiratory failure requiring BiPAP POA Healthcare associated pneumonia, POA Acute on chronic heart failure, POA Acute metabolic encephalopathy POA Bilateral pleural effusions R>L POA ESRD on HD, POA requiring emergent dialysis Hyperglycemia in the presence of type 2 diabetes mellitus Hyperkalemia, POA Hypocalcemia, POA Leukocytosis, POA Macrocytic normochromic anemia, POA Uncontrolled Diabetes mellitius type2, POA Functional quadriplegia INTERVAL HISTORY: 01/14/2025: At the time of my evaluation the patient was lying in bed. The staff nurse reports no acute events overnight. The patient's main complaint is shortness of breath with minimal exertion. The patient remains on nasal cannula for oxygen supplementation otherwise is hemodynamically stable on the monitor. Laboratory data obtained today was notable for a drop in H&H to 7.5/25.0 and a platelet count of 201. Chemistry panel today was notable for a sodium of 132, chloride of 95, BUN of 46, creatinine of 4.4 and a GFR of 10. BNP level today 1980. Procalcitonin of 5.17. Blood cultures x2 are currently negative and respiratory culture showing Gram-positive cocci in chains and clusters. Chest imaging for today showed right lung infiltrate and a right-sided pleural effusion. Currently, the patient is on antibiotic therapy with Zosyn, doxy combination. Also, the patient is on Solu-Medrol 40 q.8h. No other complaint. 01/15/2025: At the time of my evaluation, the patient was lying in bed. She reports feeling slightly better today. She remains on a nasal cannula and is hemodynamically stable on the monitor. Laboratory data today was notable for improved H&H to 8.2/28.1 and a platelet count of 192. Chemistry panel showed a sodium of 131, potassium of 5.2, chloride of 95, CO2 of 24, BUN of 76, creatinine of 5.4 and a procalcitonin of 5.68 blood culture is negative and sputum cultures so far negative. She is to undergo hemodialysis today. The patient continues on antibiotic therapy with Zosyn, doxy and vancomycin. No other complaint. REVIEW OF SYSTEMS: Unable to perform due to encephalopathy. PHYSICAL EXAM: GENERAL: Awake to voice answers to person and place. Chronically ill. HEENT: EOMI, Sclera non icteric, moist mucosa NECK: Supple, no JVD, trachea midline LUNGS: Diminished breath sounds bilaterally. No wheezes HEART: Regular rate and rhythm. Normal S1 and S2, without murmurs ABD: Abdomen soft, nontender. Bowel sounds present EXT: No clubbing cyanosis or edema NEURO: No focal deficits, GCS of 14, follows commands. Vital Signs (last 8hr) Date Time Temp Pulse Resp B/P (MAP) Pulse Ox O2 Delivery O2 Flow Rate FiO2 01/15/25 12:00 97.9 77 17 146/67 95 Nasal Cannula 4.0 01/15/25 11:55 97.0 73 18 146/66 Nasal Cannula 4.0 01/15/25 11:44 77 24 01/15/25 11:43 97.2 72 20 139/64 Nasal Cannula 4.0 01/15/25 11:43 77 24 N/Cannula Low lpm 3.0 32 01/15/25 11:30 69 14 131/57 Nasal Cannula 4.0 01/15/25 11:15 71 14 140/60 Nasal Cannula 4.0 01/15/25 11:00 77 14 146/67 Nasal Cannula 4.0 01/15/25 10:45 71 14 144/60 Nasal Cannula 4.0 01/15/25 10:30 72 14 141/57 Nasal Cannula 4.0 01/15/25 10:15 71 14 147/58 Nasal Cannula 4.0 01/15/25 10:00 73 14 143/58 Nasal Cannula 4.0 01/15/25 09:45 73 16 141/54 Nasal Cannula 4.0 01/15/25 09:30 73 16 150/58 Nasal Cannula 4.0 01/15/25 09:15 74 16 148/64 Nasal Cannula 4.0 01/15/25 09:00 76 18 146/60 Nasal Cannula 4.0 01/15/25 08:43 97.0 75 20 140/59 Nasal Cannula 4.0 01/15/25 08:30 97.0 76 22 130/59 Nasal Cannula 4.0 01/15/25 08:00 94 Nasal Cannula* 4 36 01/15/25 08:00 97.5 74 17 121/46 94 Nasal Cannula 4.0 01/15/25 06:59 69 24 01/15/25 06:58 71 24 N/Cannula Low lpm 4.0 36 LABS: Hematology Labs: Test 01/15/25 05:08 01/14/25 06:03 Range/Units White Blood Count 7.3 # 4.8-10.8 K/uL Red Blood Count 2.70 L 4.00-5.50 MIL/uL Hemoglobin 8.2 L 12.0-16.0 g/dL Hematocrit 28.1 L 36-48 % Mean Corpuscular Volume 104.1 H 79-99 fL Mean Corpuscular Hemoglobin 30.4 27.0-33.0 pg Mean Corpuscular Hemoglobin Concent 29.2 L 32.0-36.0 g/dL Red Cell Distribution Width 16.6 H 11.0-15.5 % Platelet Count 192 130-400 K/uL Mean Platelet Volume 10.1 7.5-10.5 fL Nucleated Red Blood Cells 0.8 H 0.0-0.19 % Immature Granulocyte % (Auto) 0.8 0-1 % Neutrophils (%) (Auto) 92.0 H 40.0-77.0 % Lymphocytes (%) (Auto) 5.8 L 21.0-51.0 % Monocytes (%) (Auto) 1.2 L 3.0-13.0 % Eosinophils (%) (Auto) 0.2 0.0-8.0 % Basophils (%) (Auto) 0.0 0.0-5.0 % Neutrophils # (Auto) 4.6 1.8-7.7 K/uL Lymphocytes # (Auto) 0.3 L 1.0-4.8 K/uL Monocytes # (Auto) 0.1 0.1-1.0 K/uL Eosinophils # (Auto) 0.01 0.00-0.70 K/uL Basophils # (Auto) 0.00 0.00-0.20 K/uL Absolute Immature Granulocyte (auto 0.04 0-1 K/uL Chemistry Labs: Test 01/15/25 11:09 01/15/25 05:08 01/14/25 19:36 01/14/25 06:03 Range/Units Whole Blood Glucose 97 70-110 MG/DL Sodium Level 131 L 136-145 mmol/L Potassium Level 5.2 H 3.5-5.1 mmol/L Chloride Level 95 L 101-111 mmol/L Carbon Dioxide Level 24 21-32 mmol/L Blood Urea Nitrogen 76 *H 7-18 mg/dL Creatinine 5.4 H 0.5-1.0 mg/dL Glomerular Filtration Rate Calc 8 >90 mL/min Random Glucose 136 H 70-105 mg/dL Total Calcium 7.3 L 8.5-10.1 mg/dL Procalcitonin 5.68 H 0.05-0.5 ng/mL Bedside Glucose Comment Notified Nurse B-Type Natriuretic Peptide 1980 H 0-100 pg/mL Test 01/14/25 04:07 01/13/25 14:46 Range/Units Phosphorus Level 7.2 H 2.5-4.9 mg/dL Magnesium Level 2.00 1.80-2.40 mg/dL Total Creatine Kinase 37 21-232 U/L Troponin I High Sensitivity 454 *H 4-50 ng/L DIAGNOSTICS / RADIOLOGY RESULTS: [ ] PLAN 01/15/2025: For now, going to continue current management for the patient. We will continue antibiotic therapy as ordered and pulmonary toileting. We will follow strict I&Os. We will follow the batch mixer. We will repeat surveillance labs in the morning. We will monitor the patient's progress and response to management. Further orders per attending MD and hospital course. NEURO: Minimize central acting medications as possible. Maintain fall precautions, adequate lighting during the day PULMONARY: Supplemental 02 as needed. Maintain aspiration precautions at all times CARDIOVASCULAR: Follow hemodynamics. Vital signs per facility protocol GI & NUTRITION: Continue with nutritional support. Continue stool softeners and laxatives as needed. KIDNEYS & ELECTROLYTES: Strict monitoring of intake, output and overall fluid balance. Avoid nephrotoxic medications to the extent possible. Medications to be dosed according to renal function. Monitor electrolytes and replace as needed ENDOCRINE: Maintain blood glucose between 100-180 at all times. Hypoglycemia protocol in place INFECTIOUS DISEASE: Trend temperature, WBC and procalcitonin level Follow cultures, deescalate antibiotics as soon as possible. Panculture if new onset fever ONCOLOGY/HEMATOLOGY/COAGULATION: Monitor for s/s of bleeding Monitor hemoglobin, coagulation studies as needed SKIN: Pressure ulcer prevention per facility protocol Specialty mattress ORTHO/REHAB: Continue PT/OT Prophylaxis: Continue GI and DVT prophylaxis Code Status: Full Resuscitation Disposition: TBD Other: BIJU PAINTER NP Jan 15, 2025 14:16
--- NOTE | 2025-01-15 17:13 | HMCIMG ---
MODIFIED BARIUM SWALLOW W CINE REASON: RULE OUT ASPIRATION. COMPARISON: None TECHNIQUE: Modified barium swallow study was performed by referring speech therapist. FINDINGS: Please see procedure report by referring speech therapies. IMPRESSION: Modified barium swallow study.
[2025-01-16] VITALS (8 sets, daily range): BP systolic 121–126; BP diastolic 45–55; PULSE 71–83; RESP 18–23; TEMP 98.2–98.7; O2SAT 94–100
[2025-01-16 03:50] LABS: HEMATOCRIT 27.3 % (36-48); MEAN CORPUSCULAR HEMOGLOBIN 30.3 pg (27.0-33.0); MEAN CORPUSCULAR HGB CONC 29.3 g/dL (32.0-36.0); MEAN CORPUSCULAR VOLUME 103.4 fL (79-99); NUCLEATED RED BLOOD CELLS 0.5 % (0.0-0.19); RED BLOOD CELL COUNT(AUTO) 2.64 MIL/uL (4.00-5.50); RED CELL DISTRIBUTION WIDTH 16.7 % (11.0-15.5); WHITE BLOOD COUNT (AUTO) 4.4 K/uL (4.8-10.8)
[2025-01-16 04:59] LABS: CREATININE 3.9 mg/dL (0.5-1.0); POTASSIUM 4.1 mmol/L (3.5-5.1)
--- NOTE | 2025-01-16 09:36 | HMCIMG ---
CHEST 1VW HISTORY: Pneumonia COMPARISON: 01/14/2025 FINDINGS: A frontal projection of the chest was obtained. Right lung pulmonary infiltrates are seen. The heart is borderline enlarged. Degenerative changes are seen. Aortic calcifications are seen. IMPRESSION: 1. Right lung pulmonary infiltrates increased from previous study.
[2025-01-16] MEDS ORDERED: COMPOUND IV MISC 1 EACH IVSOLN MISC PRN (12:30)
--- NOTE | 2025-01-16 14:42 | DS ---
Discharge Summary Hospital Course Summary: This is a 69-year-old chronically ill female with a past medical history of ESRD requiring hemodialysis in [facility] dialysis center, type 2 diabetes mellitus and essential hypertension who presented to the ED for evaluation of shortness breath. On arrival to the ED patient was hypothermic with a temperature 96.6 heart rate in the 80s respiratory rate 26 blood pressure of 148/61 saturating 85% at 3 L via nasal cannula. On laboratory work of white count was 17.5 H&H is 9.2/31.3 with a platelet count of 335 K neutrophils of 85.2. Ventricular count 3.6 and immature reticular fraction elevated at 14.20. Chemistries [id number] potassium of 5.5 chloride of 96 carbon [id number] BUN of83 creatinine of 7.6 and GFR of five consistent with a ESRD and a glucose of 168 mg/dL. Initial troponin 23. BNP 3120. ABG done in the ED which showed pH of 7.13, pCO2 of 68, PO2 of 85.5 and bicarb 22.3. Consistent with acute respiratory acidosis. She was placed on BiPAP. Pulmonology helped comanage. Nephrology helped with dialysis needs leading to clinical improvement. She was discharged in a stable condition. Facilities Supervisor(s): Nephrology and BIS Assessment/Plan: ASSESSMENT: [Suspected aspiration pneumonia, POA Discahrged in a astable condition. Acute hypercapnic respiratory failure requiring BiPAP POA Suspected healthcare associated pneumonia, POA Acute on chronic heart failure, POA Acute metabolic encephalopathy POA Bilateral pleural effusions R>L POA ESRD on HD, POA requiring emergent dialysis Hyperglycemia in the presence of type 2 diabetes mellitus Hyperkalemia, POA Hypocalcemia, POA Leukocytosis, POA Macrocytic normochromic anemia, POA Uncontrolled Diabetes mellitius type2, POA Functional quadriplegia Suspected pneumonia ] Home Medications: Reported Medications Ferrous Sulfate (Ferosul) 325 Mg (65 Mg Iron) Tablet, 1 TAB PO DAILY 01/13/25 Aspirin (Children's Aspirin) 81 Mg Tab.chew, 1 TAB PO DAILY 01/13/25 Atorvastatin Calcium (Atorvastatin Calcium) 40 Mg Tablet, 1 TAB PO DAILY 01/13/25 Metoprolol Tartrate (Lopressor 50Mg Tab) 50 Mg Tab, 1 TAB PO BID 01/13/25 Hydralazine HCl (Apresoline) 50 Mg Tab, 1 TAB PO TID 01/13/25 Sevelamer HCl (Sevelamer HCl) 800 Mg Tablet, 800 MG PO TIDAC 01/13/25 Amlodipine Besylate (Amlodipine Besylate) 5 Mg Tablet, 1 TAB PO DAILY 01/13/25 Arformoterol Tartrate (Arformoterol Tartrate) 15 Mcg/2 Ml Vial.neb, 1 - IH BID 01/13/25 Midodrine HCl (Midodrine HCl) 10 Mg Tablet, 1 TAB PO AD 01/13/25 Budesonide (Budesonide) 0.5 Mg/2 Ml Ampul.neb, 1 - NEB BID 01/13/25 Calcitriol (Calcitriol) 0.25 Mcg Capsule, 1 CAP PO DAILY 01/13/25 Discontinued Reported Medications Sevelamer HCl (Sevelamer HCl) 800 Mg Tablet, 800 MG PO TID 01/13/25 Discontinued Scripts Amoxicillin/Potassium Clav (Augmentin 500-125 Tablet) 1 Each Tablet, 1 EACH PO BID, #28 TAB Prov:ANDREE GRACIA MD 05/26/15 Levofloxacin (Levaquin) 500 Mg Tablet, 500 MG PO DAILY, #14 TAB Prov:ANDREE GRACIA MD 05/26/15 Lisinopril (Lisinopril) 10 Mg Tablet, 10 MG PO DAILY, #30 TAB Prov:ANDREE GRACIA MD 05/26/15 Metformin HCl (Metformin HCl) 850 Mg Tablet, 850 MG PO BID, #60 TAB Prov:ANDREE GRACIA MD 05/26/15 MADISON HAGEN MD January 16, 2025 14:42
--- NOTE | 2025-01-16 14:57 | PN ---
SUBJECTIVE: A 69-year-old female with a history of diabetes mellitus and hypertension. She has a history of end-stage renal disease, not a candidate for outpatient dialysis. The patient presented to the hospital with significant volume overload. The patient did receive dialysis in the hospital. The patient's pulmonary symptoms have improved and she is being seen as a followup visit for all of the above. REVIEW OF SYSTEMS: CONSTITUTIONAL: She is feeling weak and tired. HEENT: No change in vision. No change in hearing. CARDIOVASCULAR: There is no current chest pain or palpitations. PULMONARY: As described above. GASTROINTESTINAL: She is tolerating a diet. MUSCULOSKELETAL: Complaints of weakness. PHYSICAL EXAMINATION: VITAL SIGNS: Blood pressure is 126/53, pulse is in the 70s, afebrile. GENERAL: Chronically ill female, elderly, lying in bed on the medical floor. HEENT: Head is atraumatic. Pupils are equal, roving to light. Oropharynx is without exudate. Nares clear. NECK: There is no JVP. There is no thyromegaly. No masses. CARDIOVASCULAR: Regular. There is no S2 or S4 gallop. LUNGS: Coarse with equal thoracic movement. ABDOMEN: Soft, nondistended, nontender. EXTREMITIES: No clubbing or cyanosis. NEUROLOGICAL: She is awake. She is alert. LABORATORY DATA: Sodium 133, potassium 4, BUN 62, creatinine 3.9. Hemoglobin 8, hematocrit 27. IMPRESSION: * End-stage renal disease, not a candidate for outpatient dialysis. * Diabetes mellitus. * Hypertension. * Anemia. PLAN: The patient will continue with dialysis while in the hospital. The patient continues with the Epogen as well as IV iron for the anemia. We will continue to follow the patient closely. The patient could safely be discharged from a renal standpoint. I have had a long discussion with the patient and family. We will follow while in the hospital. TID: [id number] RECEIPT: [id number]
--- NOTE | 2025-01-16 16:10 | NUR ---
PT DISCHARGED HOME VIA EMS. DISCHARGE INSTRUCTIONS WERE GIVEN. TELE PACK WAS REMOVED AND RETURNED. BOTH IV'S TO THE RIGHT ARM WERE REMOVED AND DRESSING WAS APPLIED AFTER HOLDING PRESSURE, AND ONCE BLEEDING STOPPED.
--- NOTE | 2025-01-16 16:11 | PN ---
[facility] PROGRESS NOTE Date Patient Seen: January 16, 2025 Time of Visit: 16:11 Supervising Physician: Dr. Juan Antonio Cotton Primary Care Physician: Self Referral Outpatient Specialists: [ ] Inpatient Consults: Dr Sylvia ALMONTE PROBLEM LIST: Acute hypercapnic respiratory failure requiring BiPAP POA Healthcare associated pneumonia, POA Acute on chronic heart failure, POA improved Acute metabolic encephalopathy POA Bilateral pleural effusions R>L POA ESRD on HD, POA requiring emergent dialysis Hyperglycemia in the presence of type 2 diabetes mellitus Hyperkalemia, POA resolved Hypocalcemia, POA Leukocytosis, POA resolved Macrocytic normochromic anemia, POA Uncontrolled Diabetes mellitius type2, POA Functional quadriplegia INTERVAL HISTORY: 01/14/2025: At the time of my evaluation the patient was lying in bed. The staff nurse reports no acute events overnight. The patient's main complaint is shortness of breath with minimal exertion. The patient remains on nasal cannula for oxygen supplementation otherwise is hemodynamically stable on the monitor. Laboratory data obtained today was notable for a drop in H&H to 7.5/25.0 and a platelet count of 201. Chemistry panel today was notable for a sodium of 132, chloride of 95, BUN of 46, creatinine of 4.4 and a GFR of 10. BNP level today 1980. Procalcitonin of 5.17. Blood cultures x2 are currently negative and respiratory culture showing Gram-positive cocci in chains and clusters. Chest imaging for today showed right lung infiltrate and a right-sided pleural effusion. Currently, the patient is on antibiotic therapy with Zosyn, doxy combination. Also, the patient is on Solu-Medrol 40 q.8h. No other complaint. 01/15/2025: At the time of my evaluation, the patient was lying in bed. She reports feeling slightly better today. She remains on a nasal cannula and is hemodynamically stable on the monitor. Laboratory data today was notable for improved H&H to 8.2/28.1 and a platelet count of 192. Chemistry panel showed a sodium of 131, potassium of 5.2, chloride of 95, CO2 of 24, BUN of 76, creatinine of 5.4 and a procalcitonin of 5.68 blood culture is negative and sputum cultures so far negative. She is to undergo hemodialysis today. The patient continues on antibiotic therapy with Zosyn, doxy and vancomycin. No other complaint. 01/16/2025: At the time of my evaluation, the patient was lying in bed. The staff nurse reports no acute events overnight. The patient remains on a nasal cannula. On the monitor, she is hemodynamically stable. Laboratory data today showed no significant derangement. Chemistry panel showed a sodium of 133, potassium 4.1, chloride of 93, CO2 of 24, BUN of 62, creatinine of 2.9, GFR of 12. Magnesium of two. Respiratory culture showing Rachel albicans growth in the sputum. Blood cultures x2 showing no growth. Chest x-ray today showed persisting right lung large infiltrate. No new complaint. REVIEW OF SYSTEMS: Unable to perform due to encephalopathy. PHYSICAL EXAM: GENERAL: Awake to voice answers to person and place. Chronically ill. HEENT: EOMI, Sclera non icteric, moist mucosa NECK: Supple, no JVD, trachea midline LUNGS: Diminished breath sounds bilaterally. No wheezes HEART: Regular rate and rhythm. Normal S1 and S2, without murmurs ABD: Abdomen soft, nontender. Bowel sounds present EXT: No clubbing cyanosis or edema NEURO: No focal deficits, GCS of 14, follows commands. Vital Signs (last 8hr) Date Time Temp Pulse Resp B/P (MAP) Pulse Ox O2 Delivery O2 Flow Rate FiO2 01/16/25 12:00 98.2 73 18 121/45 98 Nasal Cannula 2.0 01/16/25 11:32 71 18 01/16/25 11:31 71 18 N/Cannula Low lpm 1.5 26 LABS: Hematology Labs: Test 01/16/25 03:25 Range/Units White Blood Count 4.4 #L 4.8-10.8 K/uL Red Blood Count 2.64 L 4.00-5.50 MIL/uL Hemoglobin 8.0 L 12.0-16.0 g/dL Hematocrit 27.3 L 36-48 % Mean Corpuscular Volume 103.4 H 79-99 fL Mean Corpuscular Hemoglobin 30.3 27.0-33.0 pg Mean Corpuscular Hemoglobin Concent 29.3 L 32.0-36.0 g/dL Red Cell Distribution Width 16.7 H 11.0-15.5 % Platelet Count 135 # 130-400 K/uL Mean Platelet Volume 10.7 H 7.5-10.5 fL Nucleated Red Blood Cells 0.5 H 0.0-0.19 % Chemistry Labs: Test 01/16/25 11:45 01/16/25 03:25 01/15/25 05:08 01/14/25 19:36 Range/Units Whole Blood Glucose 218 H 70-110 MG/DL Sodium Level 133 L 136-145 mmol/L Potassium Level 4.1 3.5-5.1 mmol/L Chloride Level 93 L 101-111 mmol/L Carbon Dioxide Level 24 21-32 mmol/L Blood Urea Nitrogen 62 H 7-18 mg/dL Creatinine 3.9 H 0.5-1.0 mg/dL Glomerular Filtration Rate Calc 12 >90 mL/min Random Glucose 177 H 70-105 mg/dL Total Calcium 7.6 L 8.5-10.1 mg/dL Magnesium Level 2.00 1.80-2.40 mg/dL Procalcitonin 5.68 H 0.05-0.5 ng/mL Bedside Glucose Comment Notified Nurse DIAGNOSTICS / RADIOLOGY RESULTS: [ ] PLAN 01/15/2025: For now, going to continue current management for the patient. We will continue antibiotic therapy as ordered and pulmonary toileting. We will follow strict I&Os. We will follow the diversional therapist's assistant. We will repeat surveillance labs in the morning. We will monitor the patient's progress and response to management. Further orders per attending MD and hospital course. 01/16/2025: Per the staff nurse, the plan is for discharge home today per the primary team. The patient has received her hemodialysis as scheduled and her respiratory status significantly improved. The patient has O2 set up. Per the pulmonary standpoint, no objection for discharge. The patient is to continue follow up in the outpatient setting to follow up on complete resolution of the pulmonary infiltrates. We will continue to provide general supportive care, GI and DVT prophylaxis. Further orders per attending MD and hospital course. NEURO: Minimize central acting medications as possible. Maintain fall precautions, adequate lighting during the day PULMONARY: Supplemental 02 as needed. Maintain aspiration precautions at all times CARDIOVASCULAR: Follow hemodynamics. Vital signs per facility protocol GI & NUTRITION: Continue with nutritional support. Continue stool softeners and laxatives as needed. KIDNEYS & ELECTROLYTES: Strict monitoring of intake, output and overall fluid balance. Avoid nephrotoxic medications to the extent possible. Medications to be dosed according to renal function. Monitor electrolytes and replace as needed ENDOCRINE: Maintain blood glucose between 100-180 at all times. Hypoglycemia protocol in place INFECTIOUS DISEASE: Trend temperature, WBC and procalcitonin level Follow cultures, deescalate antibiotics as soon as possible. Panculture if new onset fever ONCOLOGY/HEMATOLOGY/COAGULATION: Monitor for s/s of bleeding Monitor hemoglobin, coagulation studies as needed SKIN: Pressure ulcer prevention per facility protocol Specialty mattress ORTHO/REHAB: Continue PT/OT Prophylaxis: Continue GI and DVT prophylaxis Code Status: Full Resuscitation Disposition: TBD Other: BIJU PAINTER NP January 16, 2025 16:11
[2025-01-16] MEDS ORDERED: IRON sUCROse COMPLEX 300 MG in 0.9% NACL 250ML 250 ML IV ONE (21:00)
== END 2025-01-16 14:00 | disposition home or self-care (01) | DRG 137 ==
LOC: EDH 01:49 → EDHIP 01:50 → 2CH 16:37 → 2DH 01-14 15:42
PROVIDERS: ADMIT Internal Medicine; ATTEND Internal Medicine
PROC: 5A09357 Assistance with Respiratory Ventilation, Less than 24 Consecutive Hours, Continuous Positive Airway Pressure (ICD-10-PCS; principal; 2025-01-13)
PROC: 5A1D70Z Performance of Urinary Filtration, Intermittent, Less than 6 Hours Per Day (ICD-10-PCS; 2025-01-13)
PROC: 5A09357 Assistance with Respiratory Ventilation, Less than 24 Consecutive Hours, Continuous Positive Airway Pressure (ICD-10-PCS; 2025-01-15)
PROC: 5A1D70Z Performance of Urinary Filtration, Intermittent, Less than 6 Hours Per Day (ICD-10-PCS; 2025-01-15)
PROC: 5A09357 Assistance with Respiratory Ventilation, Less than 24 Consecutive Hours, Continuous Positive Airway Pressure (ICD-10-PCS; 2025-01-16)
DX: J69.0 Pneumonitis due to inhalation of food and vomit (principal); G93.41 Metabolic encephalopathy; I13.2 Hypertensive heart and chronic kidney disease with heart failure and with stage 5 chronic kidney disease, or end stage renal disease; J96.01 Acute respiratory failure with hypoxia; R53.2 Functional quadriplegia; J96.02 Acute respiratory failure with hypercapnia; E83.51 Hypocalcemia; E11.22 Type 2 diabetes mellitus with diabetic chronic kidney disease; D64.9 Anemia, unspecified; J18.9 Pneumonia, unspecified organism; N18.6 End stage renal disease; E11.65 Type 2 diabetes mellitus with hyperglycemia; I50.9 Heart failure, unspecified; E87.70 Fluid overload, unspecified; E87.5 Hyperkalemia; Z99.2 Dependence on renal dialysis; Z51.5 Encounter for palliative care; Z82.0 Family history of epilepsy and other diseases of the nervous system; Z82.3 Family history of stroke; Z82.49 Family history of ischemic heart disease and other diseases of the circulatory system; Z82.5 Family history of asthma and other chronic lower respiratory diseases; Z83.3 Family history of diabetes mellitus
CPT/HCPCS: 36415; 36600; 71045; 74230; 80048; 80202; 82435; 82550; 82607; 82746; 82803; 82947; 82948; 83036; 83540; 83550; 83605; 83615; 83735; 83880; 84100; 84132; 84145; 84295; 84484; 85018; 85025; 85027; 85045; 86704; 86706; 86803; 87040; 87071; 87205; 87340; 87426; 87804; 90935; 92610; 92611; 93005; 94640; 94660; 94664; G0378; J0692; J0696; J1644; J1756; J1815; J2543; J2919; J3370; J3490; J7050; J7070; Q5106